=== PATIENT | male | born 1960 | race Caucasian/White ===

== ENCOUNTER 2019-04-25 14:05 | Inpatient (IN) | payer BC, OTHER ==
[~2019-04-25] VITALS: Ht 182.9 cm; Wt 119.7 kg
[2019-04-25] MEDS ORDERED: amLODIPine BESYLATE 5 MG TAB PO ONE (14:30)
[2019-04-25] MEDS ORDERED: cloNIDine HCL 0.1 MG TAB PO ONE (14:30)
[2019-04-25 14:46] LABS: Basophils # (auto) 0 uL; Basophils % (auto) 0.4 % (0.0-2.0); Eosinophils # (auto) 0.1 uL; Eosinophils % (auto) 0.6 % (0.0-7.0); Hematocrit 35.7 % (41.0-53.0); Hemoglobin 12.1 g/dL (13.5-17.5); Lymphocytes # (auto) 0.8 uL; Lymphocytes % (auto) 8.5 % (10.0-50.0); Mean Corpuscular Hgb Conc. 33.8 g/dL (32.0-36.0); Mean Corpuscular Volume 88.6 fL (80.0-100.0); Monocytes # (auto) 0.8 uL; Neutrophils # (auto) 7.3 uL; Neutrophils % (auto) 81.5 % (37.0-80.0); Platelet Count (auto) 186 10^3/uL (140-450); Red Blood Cells 4.03 10^6/uL (4.5-5.90); Red Cell Distribution Width 12.2 % (11.8-14.3)
[2019-04-25 15:09] LABS: Albumin 3.6 g/dL (3.4-5.0); Anion Gap 6 (5-15); Blood Urea Nitrogen 17 mg/dL (7-18); Calcium 8.7 mg/dL (8.5-10.1); Carbon Dioxide 25 mmol/L (21-32); Chloride 107 mmol/L (98-107); Glucose 133 mg/dL (74-106); Potassium 3.4 mmol/L (3.5-5.1); Sodium 138 mmol/L (136-145)
[2019-04-25 15:15] LABS: Alanine Aminotransferase 30 U/L (16-61); Alkaline Phosphatase 86 U/L (45-117); Aspartate Aminotransferase 12 U/L (15-37); Bilirubin, Total 1.3 mg/dL (0.2-1.0); GFR African American 60 mL/min; GFR Non-African American 49 mL/min; Total Protein 7.8 g/dL (6.4-8.2)
[2019-04-25] MEDS ORDERED: POTASSIUM EFFERVESENT TAB 25 MEQ PO ONE (16:30)
[2019-04-25] MEDS ORDERED: FUROSEMIDE 20 MG/2 ML VIAL IV ONE (16:30)
[2019-04-25] MEDS ORDERED: ACETAMINOPHEN 325 MG TAB PO PRN (20:45)
[2019-04-25] MEDS ORDERED: TEMAZEPAM 15 MG CAP PO PRN (20:45)
[2019-04-25] MEDS ORDERED: ONDANSETRON HCL 4 MG/2 ML VIAL IV PRN (20:45)
[2019-04-25] MEDS ORDERED: DEXTROSE (50%) 50ML SYRG IV PRN (20:45)
[2019-04-25] MEDS ORDERED: cloNIDine HCL 0.1 MG TAB PO PRN (20:45)
[2019-04-25] MEDS ORDERED: MORPHINE SULF INJ 2 MG/ML SYRINGE 1ML IV PRN (21:15)
[2019-04-25] MEDS ORDERED: NITROGLYCERIN 0.4 MG SL TAB SL PRN (21:15)
--- NOTE | 2019-04-25 22:00 | NUR ---
Telemetry admit from ER VELIA CATALAN admitted to Telemetry unit after SBAR received. Patient oriented to Hetal Michel RN primary RN, unit, room, bed, and unit policies regarding patient care and visiting hours. Patient now on continuous telemetry monitoring, tele box # 13 and telemetry reading on arrival to unit is SR. Patient placed on bedside oxygen at 2 Lpm/NC, weighed by bedscale and encouraged to call if they need something. All questions and concerns addressed, patient verbalized understanding. will continue to monitor Note: []
[2019-04-25] MEDS: FAMOTIDINE 20 MG TAB PO SCH (22:13)
[2019-04-26] VITALS (9 sets, daily range): BP systolic 133–160; BP diastolic 74–94
[2019-04-26] MEDS: ACCU-CHEK COMFORT CURVE STRIP VI SCH ×4 (00:07→16:59)
[2019-04-26] MEDS ORDERED: AML5T PO (01:39)
[2019-04-26] MEDS ORDERED: DOXA1TAB84 PO (01:39)
[2019-04-26] MEDS ORDERED: METF-370 PO (01:39)
[2019-04-26] MEDS ORDERED: INFLUENZA QUAD 2019-2020 0.5ml SYRG IM ONE (02:00)
[2019-04-26] MEDS: InsuLIN REG 1unit/0.01ml Soln (100units/ml) SC SCH ×4 (06:00→16:59)
[2019-04-26 06:55] LABS: Basophils # (auto) 0.1 uL; Eosinophils # (auto) 0.1 uL; Eosinophils % (auto) 1.4 % (0.0-7.0); Hematocrit 34.2 % (41.0-53.0); Hemoglobin 11.7 g/dL (13.5-17.5); Lymphocytes % (auto) 16.9 % (10.0-50.0); Mean Corpuscular Hemoglobin 30.1 pg (28.0-32.0); Mean Corpuscular Hgb Conc. 34.1 g/dL (32.0-36.0); Mean Corpuscular Volume 88.4 fL (80.0-100.0); Monocytes # (auto) 0.7 uL; Monocytes % (auto) 11.7 % (0.0-12.0); Platelet Count (auto) 175 10^3/uL (140-450); Red Blood Cells 3.87 10^6/uL (4.5-5.90); Red Cell Distribution Width 12.5 % (11.8-14.3); White Blood Cell 5.7 10^3/uL (4.4-10.8)
[2019-04-26 07:03] LABS: BUN/Creatinine Ratio 11.4; Calcium 8.7 mg/dL (8.5-10.1); Potassium 3.7 mmol/L (3.5-5.1)
[2019-04-26] MEDS: FAMOTIDINE 20 MG TAB PO SCH ×2 (09:30→21:42)
[2019-04-26] MEDS ORDERED: amLODIPine BESYLATE 5 MG TAB PO SCH (10:00)
[2019-04-26] MEDS ORDERED: FUROSEMIDE 40 MG TAB PO SCH (10:00)
[2019-04-26] MEDS ORDERED: METOPROLOL TARTRATE 25 MG TAB PO ONE (12:00)
[2019-04-26 12:21] LABS: Cholesterol 158 mg/dL (< 200)
[2019-04-26 12:24] LABS: HDL Cholesterol 40 mg/dL (40-59); LDL Cholesterol 89 mg/dL (< 100); Triglycerides 190 mg/dL (< 150)
--- NOTE | 2019-04-26 17:49 | NUR ---
ORDER FOR MAR CATHETER INSERTION, PT REFUSED. EDUCATED PT ON WHY THE DR ORDERED THE CATHETER. PT IS ALERT AND ORIENTED, VERBALIZED UNDERSTANDING, BUT REFUSED THE URINARY CATH.
[2019-04-26 17:52] LABS: Basophils # (auto) 0.1 uL; Eosinophils # (auto) 0.1 uL; Eosinophils % (auto) 2.3 % (0.0-7.0); Hematocrit 34.8 % (41.0-53.0); Hemoglobin 11.9 g/dL (13.5-17.5); Lymphocytes # (auto) 1.1 uL; Lymphocytes % (auto) 18.1 % (10.0-50.0); Mean Corpuscular Hemoglobin 30.1 pg (28.0-32.0); Mean Corpuscular Hgb Conc. 34.2 g/dL (32.0-36.0); Mean Corpuscular Volume 88.1 fL (80.0-100.0); Monocytes # (auto) 0.7 uL; Monocytes % (auto) 11.3 % (0.0-12.0); Neutrophils % (auto) 67.3 % (37.0-80.0); Platelet Count (auto) 187 10^3/uL (140-450); Red Blood Cells 3.95 10^6/uL (4.5-5.90); Red Cell Distribution Width 12.3 % (11.8-14.3)
--- NOTE | 2019-04-26 20:00 | NUR ---
Opening Shift Note Assumed care of patient, awake and alert. No S/S of distress/SOB or pain. Patient is on room air. Respirations even and unlabored. Instructed on POC and to call for assist PRN, will continue to monitor for changes Q1hr and PRN.
--- NOTE | 2019-04-26 20:05 | NUR ---
PATIENT CONTINUES TO REFUSE INSERTION OF MAR CATHETER PATIENT DENIES ANY PROBLEM WITH URINATION AND DENIES HAVING ANY PELVIC PAIN.
[2019-04-26 20:52] LABS: Urine Bacteria NONE SEEN /hpf (None Seen); Urine Blood 1+ /uL (Negative); Urine Mucus FEW (None Seen); Urine Specific Gravity 1.011 (1.001-1.035); Urine WBC 1 /hpf (0 - 3)
[2019-04-26 21:12] LABS: Protein, Urine 158.7 mg/dL (0.0-11.9)
[2019-04-26] MEDS ORDERED: DOXAZOSIN MESYL 2 MG TAB PO SCH (22:00)
[2019-04-26] MEDS ORDERED: METOPROLOL TARTRATE 25 MG TAB PO SCH (22:00)
[2019-04-26] MEDS ORDERED: ATORVASTATIN 20 MG TAB PO SCH (22:00)
--- NOTE | 2019-04-27 | NUR ---
PATIENT REFUSING INSULIN PATIENT EDUCATED ON IMPORTANCE OF BLOOD SUGAR BEING WITHIN NORMAL LIMITS. PATIENT VERBALIZED UNDERSTANDING. PATIENT CONTINUES TO REFUSE INSULIN. PATIENT STATES HIS WILL BRING HIS METFORMIN IN THE MORNING. PATIENT IS ASYMPTOMATIC.
[2019-04-27] MEDS: ACCU-CHEK COMFORT CURVE STRIP VI SCH ×4 (00:10→18:00)
[2019-04-27 05:19] VITALS: BP 145/78
[2019-04-27] MEDS: InsuLIN REG 1unit/0.01ml Soln (100units/ml) SC SCH ×4 (05:32→18:00)
--- NOTE | 2019-04-27 07:00 | NUR ---
CLOSING NOTE No S/S of distress/SOB or pain. Patient is on room air. Respirations even and unlabored.
[2019-04-27 08:57] LABS: Basophils # (auto) 0 uL; Basophils % (auto) 0.7 % (0.0-2.0); Eosinophils # (auto) 0.1 uL; Hematocrit 37.1 % (41.0-53.0); Hemoglobin 12.5 g/dL (13.5-17.5); Lymphocytes # (auto) 0.8 uL; Lymphocytes % (auto) 14.7 % (10.0-50.0); Mean Corpuscular Hemoglobin 29.9 pg (28.0-32.0); Mean Corpuscular Hgb Conc. 33.7 g/dL (32.0-36.0); Mean Corpuscular Volume 88.6 fL (80.0-100.0); Monocytes # (auto) 0.6 uL; Neutrophils # (auto) 4.2 uL; Neutrophils % (auto) 72.6 % (37.0-80.0); Nucleated Red Blood Cells % 0.1 %; Platelet Count (auto) 205 10^3/uL (140-450); Red Blood Cells 4.19 10^6/uL (4.5-5.90); Red Cell Distribution Width 12.2 % (11.8-14.3); White Blood Cell 5.8 10^3/uL (4.4-10.8)
[2019-04-27 09:00] VITALS: BP 144/77
[2019-04-27 09:09] LABS: BUN/Creatinine Ratio 14.5; Calcium 8.7 mg/dL (8.5-10.1); Magnesium 2.2 mg/dL (1.6-2.6); Potassium 3.4 mmol/L (3.5-5.1)
[2019-04-27] MEDS ORDERED: ERGOCALCIFEROL 50,000 UNIT(1.25MG) CAP PO SCH (09:30)
[2019-04-27] MEDS: FAMOTIDINE 20 MG TAB PO SCH (09:49)
[2019-04-27] MEDS ORDERED: amLODIPine BESYLATE 5 MG TAB PO SCH (10:00)
[2019-04-27] MEDS ORDERED: FUROSEMIDE 40 MG TAB PO SCH ×2 (10:00)
[2019-04-27] MEDS: METOPROLOL TARTRATE 50 MG TAB PO SCH (10:00)
[2019-04-27 12:33] VITALS: BP 147/87
[2019-04-27] MEDS ORDERED: POTA-180 PO (15:44)
[2019-04-27] MEDS ORDERED: MET50T PO (15:44)
[2019-04-27] MEDS ORDERED: ATOR20TA50 PO (15:44)
[2019-04-27] MEDS ORDERED: ERGO1CAP23 PO (15:44)
[2019-04-27] MEDS ORDERED: FURO40TA4 PO (15:44)
[2019-04-27] MEDS ORDERED: AML5T PO (15:44)
[2019-04-27] MEDS ORDERED: TAM04C PO (15:44)
[2019-04-27] MEDS ORDERED: POTASSIUM CHL 20 Meq TABLET PO ONE (15:45)
[2019-04-27 17:00] VITALS: BP 147/84
[2019-04-27 17:38] VITALS: BP 147/84
[2019-04-27] MEDS ORDERED: TAMSULOSIN HYDROCHLORIDE 0.4 MG CAP PO SCH (18:00)
--- NOTE | 2019-04-27 19:02 | NUR ---
DISCHARGE INSTRUCTIONS GIVEN TO PT. VERBALIZED UNDERSTANDING. ALL PAPERWORK SIGNED. IV REMOVED. TELE BOX #[id number] REMOVED AND TAKEN TO TELE MONITOR ROOM.
[2019-04-28] MEDS ORDERED: POTASSIUM CHL 20 Meq TABLET PO SCH (10:00)
== END 2019-04-27 19:00 | disposition home or self-care (01) | DRG 682 ==
LOC: ER 14:17 → TELE 14:18 → TELE-EAST 23:00
PROVIDERS: ADMIT Nurse Practitioner; ATTEND Internal Medicine
DX: N17.9 Acute kidney failure, unspecified (principal); I50.43 Acute on chronic combined systolic (congestive) and diastolic (congestive) heart failure; I16.9 Hypertensive crisis, unspecified; I43 Cardiomyopathy in diseases classified elsewhere; I31.3 Pericardial effusion (noninflammatory); N13.8 Other obstructive and reflux uropathy; I13.0 Hypertensive heart and chronic kidney disease with heart failure and stage 1 through stage 4 chronic kidney disease, or unspecified chronic kidney disease; E11.22 Type 2 diabetes mellitus with diabetic chronic kidney disease; E66.01 Morbid (severe) obesity due to excess calories; E87.6 Hypokalemia; E11.21 Type 2 diabetes mellitus with diabetic nephropathy; N18.9 Chronic kidney disease, unspecified; R33.8 Other retention of urine; Z68.35 Body mass index [BMI] 35.0-35.9, adult; E55.9 Vitamin D deficiency, unspecified; E78.5 Hyperlipidemia, unspecified; F41.9 Anxiety disorder, unspecified; I16.0 Hypertensive urgency; I27.20 Pulmonary hypertension, unspecified; N40.1 Benign prostatic hyperplasia with lower urinary tract symptoms; Z79.84 Long term (current) use of oral hypoglycemic drugs; Z82.49 Family history of ischemic heart disease and other diseases of the circulatory system; Z23 Encounter for immunization
CPT/HCPCS: 36415; 71046; 76775; 80048; 80053; 80061; 81001; 82306; 82533; 82570; 82962; 83036; 83735; 83880; 83970; 84100; 84154; 84156; 84300; 84443; 84484; 85025; 93005; 93306; 96374; G0378

== ENCOUNTER 2020-01-18 05:50 | Emergency (ER) | payer BC ==
[~2020-01-18] VITALS: Ht 182.9 cm; Wt 117.9 kg
[~2020-01-18 05:50] MED LIST: AML5T PO; ATOR20TA50 PO; ERGO1CAP23 PO; FURO40TA4 PO; MET50T PO; METF-370 PO; POTA-180 PO; TAM04C PO
[2020-01-18 07:19] LABS: Urine Amorphous Crystal MOD /hpf (None Seen); Urine Bacteria FEW /hpf (None Seen); Urine Blood 1+ /uL (Negative); Urine Mucus FEW (None Seen); Urine Specific Gravity 1.014 (1.001-1.035); Urine WBC 1 /hpf (0 - 3)
[2020-01-18] MEDS ORDERED: TAMSULOSIN HYDROCHLORIDE 0.4 MG CAP PO ONE (08:15)
[2020-01-18 09:00] VITALS: BP 146/82
== END 2020-01-18 09:18 | disposition home or self-care (01) ==
LOC: ER 05:51
DX: N40.1 Benign prostatic hyperplasia with lower urinary tract symptoms (principal); R33.8 Other retention of urine; I10 Essential (primary) hypertension; E11.65 Type 2 diabetes mellitus with hyperglycemia; I11.0 Hypertensive heart disease with heart failure; I50.9 Heart failure, unspecified; Z87.440 Personal history of urinary (tract) infections; Z79.899 Other long term (current) drug therapy
CPT/HCPCS: 51702; 81001; 82962

== ENCOUNTER 2020-05-24 07:11 | Day surgery (SDC) | payer BC, OTHER ==
[~2020-05-24] VITALS: Ht 182.9 cm; Wt 116.6 kg
[~2020-05-24 07:11] MED LIST changes: -ATOR20TA50 PO; +CHOL100029 PO; -ERGO1CAP23 PO; +FINA5TAB4 PO; +HYDR-4296 PO; +LISI-716 PO; -METF-370 PO; +METF-371 PO
[2020-05-24] MEDS ORDERED: ceFAZolin 1GM/50ML 50 ML IV ONE (09:16)
[2020-05-24] MEDS ORDERED: MEPERIDINE HCL (50 MG/ML) 1 ML VIAL ONE (09:53)
[2020-05-24] MEDS ORDERED: MIDAZOLAM HCL 2MG/2ML 2ml VIAL (1mg/ml) ONE (09:53)
[2020-05-24] MEDS ORDERED: fentaNYL CITRATE 100 MCG/2 ML VL ONE (09:53)
[2020-05-24] MEDS ORDERED: ETOMIDATE (2MG/ML) 20ML VIAL IV ONE (10:14)
[2020-05-24] MEDS ORDERED: DexAMETHasone SOD PHOS 10MG/1ML VIAL INJ ONE (10:14)
[2020-05-24] MEDS ORDERED: ONDANSETRON HCL 4 MG/2 ML VIAL IV PRN (10:15)
[2020-05-24] MEDS ORDERED: MORPHINE SULFATE 4 MG/ML SYR/VIAL IV PRN (10:15)
[2020-05-24] MEDS ORDERED: LABETALOL HCL 5 MG/ML 4ML SYRINGE IV PRN (10:15)
[2020-05-24] MEDS ORDERED: ACCU-CHEK COMFORT CURVE STRIP VI ONE (10:15)
[2020-05-24] MEDS ORDERED: HYDROmorphone HCL 2 MG/ML VL IV PRN (10:15)
[2020-05-24] MEDS ORDERED: MIDAZOLAM HCL 2MG/2ML 2ml VIAL (1mg/ml) IV PRN (10:15)
[2020-05-24] MEDS ORDERED: ePHEDrine SULFATE 50 MG/ML AMP IV PRN (10:15)
[2020-05-24 11:15] VITALS: BP 142/79
== END 2020-05-24 11:25 | disposition home or self-care (01) ==
LOC: SUR 07:11
PROVIDERS: ATTEND Urology
DX: N21.0 Calculus in bladder (principal); N40.0 Benign prostatic hyperplasia without lower urinary tract symptoms; I10 Essential (primary) hypertension; E11.9 Type 2 diabetes mellitus without complications; E66.01 Morbid (severe) obesity due to excess calories; E07.9 Disorder of thyroid, unspecified; Z68.34 Body mass index [BMI] 34.0-34.9, adult; Z20.822 Contact with and (suspected) exposure to COVID-19; Z98.890 Other specified postprocedural states; Z79.899 Other long term (current) drug therapy
CPT/HCPCS: 52318; 82962; C1769; J0690; J1100; J2175; J2250; J3010; J7030; U0003

== ENCOUNTER 2022-11-17 06:01 | Inpatient (IN) | payer BC ==
[~2022-11-17] VITALS: Ht 182.9 cm; Wt 117.9 kg
[~2022-11-17 06:01] MED LIST changes: -LISI-716 PO; +LISI10TA34 PO; -TAM04C PO; +TAMS-35 PO
[2022-11-17 07:14] LABS: Basophils # (auto) 0 10 ^3/uL (0-0.2); Basophils % (auto) 0.5 % (0.0-2.0); Eosinophils # (auto) 0.1 10 ^3/uL (0-0.8); Eosinophils % (auto) 1.4 % (0.0-7.0); Hematocrit 39.2 % (41.0-53.0); Hemoglobin 12.8 g/dL (13.5-17.5); Lymphocytes # (auto) 0.5 10 ^3/uL (0.4-5.4); Lymphocytes % (auto) 6.6 % (10.0-50.0); Mean Corpuscular Hemoglobin 30.4 pg (28.0-32.0); Mean Corpuscular Hgb Conc. 32.8 g/dL (32.0-36.0); Mean Corpuscular Volume 92.9 fL (80.0-100.0); Monocytes # (auto) 0.5 10 ^3/uL (0-1.3); Monocytes % (auto) 6.1 % (0.0-12.0); Neutrophils # (auto) 6.3 10 ^3/uL (1.6-8.6); Neutrophils % (auto) 85.4 % (37.0-80.0); Red Blood Cells 4.22 10^6/uL (4.5-5.90); White Blood Cell 7.4 10^3/uL (4.4-10.8)
[2022-11-17 07:18] LABS: Albumin 3.2 g/dL (3.4-5.0); BUN/Creatinine Ratio 12.9 (10.0-20.0); Calcium 8.2 mg/dL (8.5-10.1); Magnesium 2.3 mg/dL (1.6-2.6); Potassium 4.2 mmol/L (3.5-5.1)
[2022-11-17 07:21] LABS: Bilirubin, Total 0.6 mg/dL (0.2-1.0); Total Protein 6.5 g/dL (6.4-8.2)
[2022-11-17 07:23] LABS: Urine Bacteria FEW /hpf (None Seen); Urine Blood 1+ /uL (Negative); Urine Clarity Clear (Clear); Urine Hyaline Cast FEW /lpf (0 - 2); Urine Protein, UAD 3+ (Negative); Urine Urobilinogen Normal (Negative); Urine WBC 14 /hpf (0 - 3); Urine pH 6.5 (5.0-8.0)
[2022-11-17 07:35] LABS: Urine Color Straw (Yellow)
[2022-11-17] MEDS ORDERED: hydrALAZINE HCL 20 MG/ML VL IV ONE (12:30)
[2022-11-17 13:08] VITALS: PULSE 77; RESP 18; O2SAT 97
[2022-11-17] MEDS ORDERED: ENOXAPARIN SOD 120 MG/0.8 ML SYRINGE SC ONE (14:30)
[2022-11-17] MEDS ORDERED: FUROSEMIDE 40 MG/4 ML VIAL IV ONE (14:30)
[2022-11-17] MEDS ORDERED: ONDANSETRON HCL 4 MG/2 ML VIAL IV PRN (16:00)
[2022-11-17] MEDS ORDERED: NITROGLYCERIN 0.4 MG SL TAB SL PRN (16:00)
[2022-11-17] MEDS ORDERED: MORPHINE SULFATE INJ 2 MG/ml SYRG IV PRN ×2 (16:00)
[2022-11-17] MEDS ORDERED: ACETAMINOPHEN 325 MG TAB PO PRN (16:00)
[2022-11-17] MEDS ORDERED: HYDROcodone-ACET 5/325MG TAB PO PRN (16:00)
[2022-11-17 18:52] LABS: Creatinine, Urine 45 mg/dL (30.0-125.0); Sodium Urine 114 mmol/L (40-220)
[2022-11-17 19:02] LABS: Protein, Urine 486.9 mg/dL (0.0-11.9); Urine Protein/Creatinine Ratio 11.07
[2022-11-17 19:35] VITALS: PULSE 73; RESP 18; O2SAT 92
[2022-11-18 05:55] LABS: Basophils # (auto) 0.1 10 ^3/uL (0-0.2); Eosinophils # (auto) 0.1 10 ^3/uL (0-0.8); Eosinophils % (auto) 2.9 % (0.0-7.0); Hematocrit 38.4 % (41.0-53.0); Hemoglobin 12.4 g/dL (13.5-17.5); Lymphocytes # (auto) 0.7 10 ^3/uL (0.4-5.4); Mean Corpuscular Hemoglobin 30.1 pg (28.0-32.0); Mean Corpuscular Hgb Conc. 32.4 g/dL (32.0-36.0); Monocytes # (auto) 0.5 10 ^3/uL (0-1.3); Monocytes % (auto) 10.1 % (0.0-12.0); Neutrophils # (auto) 3.7 10 ^3/uL (1.6-8.6); Nucleated Red Blood Cells % 0.1 %; Red Blood Cells 4.13 10^6/uL (4.5-5.90); Red Cell Distribution Width 12.8 % (11.8-14.3); White Blood Cell 5.1 10^3/uL (4.4-10.8)
[2022-11-18 06:22] LABS: Potassium 3.9 mmol/L (3.5-5.1)
[2022-11-18 06:34] LABS: Albumin 2.8 g/dL (3.4-5.0); BUN/Creatinine Ratio 12.2 (10.0-20.0); Bilirubin, Total 0.4 mg/dL (0.2-1.0); Total Protein 6.5 g/dL (6.4-8.2)
[2022-11-18 09:13] VITALS: PULSE 82; RESP 18; O2SAT 94
[2022-11-18 09:14] VITALS: BP 180/110; PULSE 77; RESP 21; TEMP 97.8; O2SAT 94
[2022-11-18] MEDS: FUROSEMIDE 40 MG/4 ML VIAL IV SCH (10:14)
[2022-11-18] MEDS: ENOXAPARIN SOD 40 MG/0.4 ML SYRINGE SC SCH (10:14)
[2022-11-18 13:46] VITALS: BP 153/85; PULSE 78; RESP 18; TEMP 98.7; O2SAT 95
[2022-11-18] MEDS: amLODIPine BESYLATE 5 MG TAB PO SCH (13:51)
[2022-11-18 17:00] VITALS: BP 158/87; PULSE 70; RESP 19; TEMP 98; O2SAT 93
[2022-11-18 20:00] VITALS: PULSE 70
[2022-11-18 22:00] VITALS: BP 156/81; PULSE 72; RESP 21; TEMP 98.3; O2SAT 95
[2022-11-19 05:00] VITALS: BP 118/69; PULSE 72; RESP 22; TEMP 97.8; O2SAT 96
[2022-11-19 08:00] VITALS: PULSE 67; PULSE 74; RESP 18; O2SAT 95
[2022-11-19 09:00] VITALS: BP 155/86; PULSE 72; RESP 20; TEMP 97.8; O2SAT 96
[2022-11-19] MEDS: FUROSEMIDE 40 MG/4 ML VIAL IV SCH (09:26)
[2022-11-19] MEDS: ENOXAPARIN SOD 40 MG/0.4 ML SYRINGE SC SCH (09:27)
[2022-11-19] MEDS: amLODIPine BESYLATE 5 MG TAB PO SCH (09:27)
[2022-11-19] MEDS ORDERED: ERGOCALCIFEROL 50,000 UNIT(1.25MG) CAP PO SCH (10:30)
[2022-11-19 13:00] VITALS: BP 144/72; PULSE 75; RESP 20; TEMP 97.5; O2SAT 93
[2022-11-19] MEDS ORDERED: CEPH500C PO (13:23)
[2022-11-19 16:05] VITALS: BP 155/86; PULSE 78; RESP 18; TEMP 36.4; O2SAT 94
[2022-11-19 17:00] VITALS: BP 132/60; PULSE 69; RESP 20; TEMP 97.9; O2SAT 94
[2022-11-20 13:50] LABS: Hepatitis B Surface Antigen Negative (Negative); Hepatitis C Antibody Negative (Negative)
== END 2022-11-19 17:00 | disposition home or self-care (01) | DRG 291 ==
LOC: ER 06:01 → TELE 15:51 → TELE-CENTR 11-18 08:09
PROVIDERS: ADMIT Internal Medicine; ATTEND Internal Medicine
DX: I13.0 Hypertensive heart and chronic kidney disease with heart failure and stage 1 through stage 4 chronic kidney disease, or unspecified chronic kidney disease (principal); I50.43 Acute on chronic combined systolic (congestive) and diastolic (congestive) heart failure; N17.0 Acute kidney failure with tubular necrosis; N39.0 Urinary tract infection, site not specified; N18.4 Chronic kidney disease, stage 4 (severe); N25.81 Secondary hyperparathyroidism of renal origin; E66.01 Morbid (severe) obesity due to excess calories; E11.22 Type 2 diabetes mellitus with diabetic chronic kidney disease; N32.9 Bladder disorder, unspecified; N40.0 Benign prostatic hyperplasia without lower urinary tract symptoms; E55.9 Vitamin D deficiency, unspecified; Z68.35 Body mass index [BMI] 35.0-35.9, adult; Z79.84 Long term (current) use of oral hypoglycemic drugs; Z79.899 Other long term (current) drug therapy; Z82.49 Family history of ischemic heart disease and other diseases of the circulatory system
CPT/HCPCS: 36415; 71045; 74176; 76775; 78582; 80053; 81001; 82306; 82570; 83036; 83735; 83880; 83970; 84100; 84156; 84300; 84484; 85025; 85379; 86803; 87340; 93005; 93306; 93970; 97110; 97116; 97163; G0378

== ENCOUNTER 2022-12-02 09:12 | Emergency (ER) | payer BC ==
[~2022-12-02] VITALS: Ht 182.9 cm; Wt 115.3 kg
[~2022-12-02 09:12] MED LIST changes: +CEPH500C PO
[2022-12-02] MEDS ORDERED: cloNIDine HCL 0.1 MG TAB PO ONE (09:45)
[2022-12-02 10:15] LABS: Basophils # (auto) 0.1 10 ^3/uL (0-0.2); Eosinophils # (auto) 0.1 10 ^3/uL (0-0.8); Eosinophils % (auto) 0.9 % (0.0-7.0); Hematocrit 45.4 % (41.0-53.0); Lymphocytes # (auto) 0.6 10 ^3/uL (0.4-5.4); Lymphocytes % (auto) 9.8 % (10.0-50.0); Mean Corpuscular Hemoglobin 30.2 pg (28.0-32.0); Mean Corpuscular Volume 91.5 fL (80.0-100.0); Monocytes # (auto) 0.5 10 ^3/uL (0-1.3); Monocytes % (auto) 7.6 % (0.0-12.0); Neutrophils # (auto) 5.1 10 ^3/uL (1.6-8.6); Neutrophils % (auto) 80.7 % (37.0-80.0); Nucleated Red Blood Cells % 0.1 %; Red Blood Cells 4.96 10^6/uL (4.5-5.90); White Blood Cell 6.3 10^3/uL (4.4-10.8)
[2022-12-02 11:10] LABS: Alanine Aminotransferase 11 U/L (7-40); Albumin 4.3 g/dL (3.2-4.8); Alkaline Phosphatase 75 U/L (46-116); Anion Gap 9.7 (5-15); Aspartate Aminotransferase < 8 U/L (13-40); BUN/Creatinine Ratio 10.3 (10.0-20.0); Blood Urea Nitrogen 31 mg/dL (9-23); Calcium 9.1 mg/dL (8.5-10.1); Carbon Dioxide 19.3 mmol/L (20-30); Chloride 110 mmol/L (98-107); Glucose 150 mg/dL (74-106); Potassium 4.3 mmol/L (3.5-5.1); Sodium 139 mmol/L (136-145); Total Protein 7.1 g/dL (5.7-8.2)
[2022-12-02 11:13] LABS: Bilirubin, Total 0.5 mg/dL (0.2-1.0)
[2022-12-02] MEDS ORDERED: MECL1TAB42 PO (12:30)
[2022-12-02 12:43] VITALS: BP 155/81; PULSE 78; RESP 17; O2SAT 98
[2022-12-02 13:09] LABS: Urine Bacteria NONE SEEN /hpf (None Seen); Urine Blood 2+ /uL (Negative); Urine Clarity HAZY (Clear); Urine Color Yellow (Yellow); Urine Mucus FEW (None Seen); Urine Protein, UAD 4+ (Negative); Urine Specific Gravity 1.025 (1.001-1.035); Urine Urobilinogen Normal (Negative); Urine WBC 44 /hpf (0 - 3); Urine pH 6.5 (5.0-8.0)
== END 2022-12-02 12:50 | disposition home or self-care (01) ==
LOC: ER 09:12
DX: I10 Essential (primary) hypertension (principal); R42 Dizziness and giddiness; I11.0 Hypertensive heart disease with heart failure; I50.9 Heart failure, unspecified; E11.9 Type 2 diabetes mellitus without complications; E78.5 Hyperlipidemia, unspecified; Z90.49 Acquired absence of other specified parts of digestive tract
CPT/HCPCS: 36415; 70450; 71045; 80053; 81001; 82962; 84484; 85025; 93005

== ENCOUNTER 2024-10-24 07:31 | Inpatient (IN) | payer BC ==
[~2024-10-24] VITALS: Ht 182.9 cm; Wt 123.0 kg
[2024-10-24] VITALS (9 sets, daily range): BP systolic 134–159; BP diastolic 50–95; PULSE 89–105; RESP 20–22; TEMP 97.6–98.6; O2SAT 93–100
[~2024-10-24 07:31] MED LIST changes: -HYDR-4296 PO; +HYDR25TA88 PO; +MECL1TAB42 PO
--- NOTE | 2024-10-24 08:40 | ED.PDOC ---
SOB-HPI HPI Comments 63 y/o M, with PMHx of HTN, DM, and HLD presents to the ED for CC of shortness of breath. Patient states, he has been experiencing symptoms of shortness of breath x1day. Patient reports, symptoms to worsen with exertion feeling as if he is unable to catch his breath. Patient denies cough, chest pain, palpitations, fever, chills, or fatigue. No other associated symptoms, modifiers, recent injuries or sick contacts present at this time. Chief Complaint: Shortness of Breath Time Seen by MD: 08:10 Primary Care Provider: karen Reviewed notes: Nurses Notes, Medications, Allergies Mode of Arrival: Ambulatory Severity: Moderate Timing: Days Duration: Since onset Context: At Rest PE Risk Factors: None History of: None Prehospital treatment: None Modifying Factors: Exertion; Laying flat, Anxiety, Inhaler, Rest, Sitting up, Nothing Associated Signs and Symptoms: None Past Medical History PAST MEDICAL HISTORY: CHF, DM, High Lipids, HTN, UTI'S Surgical History: Appendectomy Family History Family History: Reviewed,noncontributory to illness Social History Smoker: Non-Smoker Alcohol: Denies ETOH Use Drugs: Denies Drug Use Lives In: Home Constitutional: denies: chills, diaphoresis, fatigue, fever, malaise, sweats, weakness, others EENTM: denies: blurred vision, double vision, ear bleeding, ear discharge, ear drainage, ear pain, ear ringing, eye pain, eye redness, hearing loss, mouth pain, mouth swelling, nasal discharge, nose bleeding, nose congestion, nose pain, photophobia, tearing, throat pain, throat swelling, voice changes, others Respiratory: reports: shortness of breath; denies: cough, hemoptysis, orthopnea, SOB at rest, SOB with excertion, stridor, wheezing, others Cardiovascular: denies: chest pain, dizzy spells, diaphoresis, Dyspnea on exertion, edema, irregular heart beat, left arm pain, lightheadedness, palpitations, PND, syncope, others Gastrointestinal: denies: abdomen distended, abdominal pain, blood streaked bowels, constipated, diarrhea, dysphagia, difficulty swallowing, hematemesis, melena, nausea, poor appetite, poor fluid intake, rectal bleeding, rectal pain, vomiting, others Genitourinary: denies: burning, dysuria, flank pain, frequency, hematuria, incontinence, penile discharge, penile sore, pain, testicle pain, testicle swelling, urgency, others Neurological: denies: dizziness, fainting, headache, left sided numbness, left sided weakness, numbness, paresthesia, pre-existing deficit, right sided numbness, right sided weakness, seizure, speech problems, tingling, tremors, weakness, others Musculoskeletal: denies: back pain, gout, joint pain, joint swelling, muscle pain, muscle stiffness, neck pain, others Integumetry: denies: bruises, change in color, change in hair/nails, dryness, laceration, lesions, lumps, rash, wounds, others Allergic/Immunocompromised: denies: Difficulty Healing, Frequent Infections, Hives, Itching, others Hematologic/Lymphatic: denies: anemia, blood clots, easy bleeding, easy bruising, swollen glands, others Endocrine: denies: excessive hunger, excessive sweating, excessive thirst, excessive urination, flushing, intolerance to cold, intolerance to heat, unexplained weight gain, unexplained weight loss, others Psychiatric: denies: anxiety, bipolar disorder, depression, hopeless, panic disorder, schizophrenia, sleepless, suicidal, others All Other Systems: Reviewed and Negative Physical Exam General Appearance: Moderate Distress HEENT: Normal ENT Inspection, Pharynx Normal, TMs Normal Neck: Full Range of Motion, Non-Tender, Normal, Normal Inspection Respiratory: Accessory Muscle Use, Respiratory Distress, Other (Coarse breath sounds) Cardiovascular: No Edema, No JVD, No Murmur, No Gallop, Normal Peripheral Pulses, Regular Rate/Rhythm Breast Exam: Deferred Gastrointestinal: Distended Genitalia: Deferred Pelvic: Deferred Rectal: Deferred Extremities: No calf tenderness, Normal capillary refill, Normal inspection, Normal range of motion, Non-tender, No pedal edema Musculoskeletal : Apperance: Normal Neurologic: Alert, aircraft captain II-XII nml as Tested, No Motor Deficits, Normal Affect, Normal Mood, No Sensory Deficits Cerebellar Function: Normal Reflexes: Normal Skin: Dry, Normal Color, Warm Peripheral Pulses: 3+ Radial (R), 3+ Radial (L) Lymphatic: No Adenopathy EKG EKG : Pulse Rate (adult): 93 Cardiac Rhythm: NSR Was a procedure done? Was a procedure done?: No Differential Dx Differential Diagnosis: Anxiety, Asthma, Bronchitis, CHF, COPD, Pneumonia, Pulmonary Embolism, Sinusitis, Pharyngitis, URI X-Ray, Labs, Meds, VS Vital Signs Date Time Temp Pulse Resp B/P (MAP) Pulse Ox O2 Delivery O2 Flow Rate FiO2 10/24/24 10:20 Nasal Cannula* 4 36 10/24/24 10:18 97.8 97 24 172/87 (115) 97 97.8 10/24/24 10:11 172/87 10/24/24 09:06 18 92 Nasal Cannula* 3 32 10/24/24 08:05 97.9 98 22 151/79 (103) 96 97.9 Lab Test 10/24/24 10:00 10/24/24 08:31 10/24/24 08:01 Range/Units Lactic Acid Level 2.9 *H 0.4-2.0 mmol/L White Blood Count 14.7 H 4.4-10.8 10^3/uL Red Blood Count 2.98 L 4.5-5.90 10^6/uL Hemoglobin 9.1 L 13.5-17.5 g/dL Hematocrit 28.0 L 41.0-53.0 % Mean Corpuscular Volume 94.0 80.0-100.0 fL Mean Corpuscular Hemoglobin 30.5 28.0-32.0 pg Mean Corpuscular Hemoglobin Concent 32.4 32.0-36.0 g/dL Red Cell Distribution Width 13.8 11.8-14.3 % Platelet Count 261 140-450 10^3/uL Mean Platelet Volume 9.4 6.9-10.8 fL Neutrophils (%) (Auto) 37.0-80.0 % Lymphocytes (%) (Auto) 10.0-50.0 % Monocytes (%) (Auto) 0.0-12.0 % Basophils (%) (Auto) 0.0-2.0 % Neutrophils # (Auto) 1.6-8.6 10 ^3/uL Lymphocytes # (Auto) 0.4-5.4 10 ^3/uL Monocytes # (Auto) 0-1.3 10 ^3/uL Differential Total Cells Counted 100.0 100 Neutrophils % (Manual) 92 H 37.0-80.0 Band Neutrophils % (Manual) 0 Lymphocytes % (Manual) 6 L 10.0-50.0 Monocytes % (Manual) 2 0-12 Eosinophils % (Manual) 0 0-7 Basophils % (Manual) 0 0.0-2.0 Metamyelocytes % (manual) 0 Myelocytes % (Manual) 0 Promyelocytes % (Manual) 0 Blast Cells % (Manual) 0 Reactive Lymphocytes 0 Platelet Estimate Adequate Clumped Platelets None D-Dimer, Quantitative 0.60 H 0.0-0.49 mg/L FEU Sodium Level 139 136-145 mmol/L Potassium Level 4.2 3.5-5.1 mmol/L Chloride Level 106 98-107 mmol/L Carbon Dioxide Level 21 20-31 mmol/L Anion Gap 12 5-15 Blood Urea Nitrogen 38 H 9-23 mg/dL Creatinine 3.73 H 0.700-1.30 mg/dL Glomerular Filtration Rate Calc 17 >90 mL/min BUN/Creatinine Ratio 10.2 10.0-20.0 Serum Glucose 254 H 74-106 mg/dL Calcium Level 9.1 8.7-10.4 mg/dL Troponin I High Sensitivity 248 *H </=54 ng/L POC Glucose 250 H 70-106 mg/dl Current Medications Medications (Trade) Dose Ordered Sig/Bossman Route Start Time Stop Time Status Last Admin Methylprednisolone Sodium Succinate (Solu Medrol) 125 mg ONCE ONCE IV 10/24/24 08:45 10/24/24 08:46 DC 10/24/24 10:10 Albuterol (Ventolin Medneb) 5 mg ONCE ONCE NEB 10/24/24 08:45 10/24/24 08:46 DC 10/24/24 09:06 Ipratropium [place] (Atrovent Medneb) 0.5 mg ONCE ONCE NEB 10/24/24 08:45 10/24/24 08:46 DC 10/24/24 09:06 Levofloxacin/ Dextrose 100 ml @ 100 mls/hr ONCE ONCE IV 10/24/24 09:45 10/24/24 10:44 DC 10/24/24 10:10 Vancomycin HCl 200 ml @ 200 mls/hr ONCE ONCE IV 10/24/24 09:45 10/24/24 10:44 DC 10/24/24 10:10 Furosemide (Lasix Injection) 40 mg ONCE ONCE IV 10/24/24 09:45 10/24/24 09:46 DC 10/24/24 10:11 Enoxaparin Sodium (Lovenox) 120 mg ONCE ONCE SC 10/24/24 10:30 10/24/24 10:31 DC 10/24/24 10:[address] [address] Ph: [phone] DIAGNOSTIC IMAGING Diagnostic Imaging Report : [id number] Signed PATIENT: VELIA CATALAN ACCT: [id number] UNIT: [id number] : 1960 LOC: ER ROOM / BED: / AGE / SEX: 63 / M ADM STATUS: REG ER SERVICE 1 ORDERING PHYSICIAN: OSWALD PAUL MD PROCEDURE(s): CXRP - CHEST PORTABLE REASON: sob ORDER NUMBER(s): [id number], ACCESSION NUMBER(s): [id number] CHEST RADIOGRAPH Indication: sob Technique: Single frontal view of the chest was obtained COMPARISON: XY CHEST PORTABLE on DOS: 12/02/22, XY CHEST PORTABLE on DOS: 11/17/22 FINDINGS: Lines and Tubes: None Lungs: Congestion Pleura: No effusion. No pneumothorax. Cardiomediastinal contours: Unremarkable Bones: Unremarkable IMPRESSION: Mild pulmonary vascular congestion. ATED BY: HORACE CANALES MD DICTATED DATE/TIME: 10/24/24850 SIGNED BY: HORACE CANALES MD SIGNED DATE/TIME: 10/24/24850 CC: Patient alert. Complaining of shortness a breath. Placed on oxygen. Answering questions. No leg swelling. Chest x-ray does show CHF. Was given Lasix pain Was given breathing treatment. WBC elevated. Possible pneumonitis. Was given Levaquin. Was given vancomycin. Patient could not be given fluids as per sepsis protocol because of CHF. Explained to the patient. Continue to monitor. EKG reviewed does not show any acute process. Time of 1ST Reevaluation: 08:40 Reevaluation 1ST: Unchanged Patient Education/Counseling: Diagnosis, Treatment Family Education/Counseling: No Family Present SEPSIS Sepsis Screen Date sepsis recognized/suspect: Oct 24, 2024 Time Sepsis recognized/suspect: 0759 Recent Procedure: No On Antibiotic Therapy: No Respiratory Rate >20: No Heart Rate >90: Yes Temp<36 C (96.8 F) or >38.3 C: No SBP <90 or MAP <65 mmHG: No New Acute Mental Status Change: No Is the patient on CPAP, BIPAP,: No Physician Orders Chest Portable (10/24/24 08:12) Blood Culture (10/24/24 09:35) Nm Vq Scan (10/24/24 10:27) Sodium Chloride 0.9% (10/24/24 11:00) Vital Signs Date Time Temp Pulse Resp B/P (MAP) Pulse Ox O2 Delivery O2 Flow Rate FiO2 10/24/24 10:20 Nasal Cannula* 4 36 10/24/24 10:18 97.8 97 24 172/87 (115) 97 97.8 10/24/24 10:11 172/87 10/24/24 09:06 18 92 Nasal Cannula* 3 32 10/24/24 08:05 97.9 98 22 151/79 (103) 96 97.9 Laboratory Tests Test 10/24/24 08:31 10/24/24 10:00 White Blood Count 14.7 10^3/uL (4.4-10.8) H Lactic Acid Level 2.9 mmol/L (0.4-2.0) *H Medications Medications Dose Ordered Sig/Bossman Route Start Time Stop Time Status Last Admin Dose Admin Albuterol 5 mg ONCE ONCE NEB 10/24/24 08:45 10/24/24 08:46 DC 10/24/24 09:06 Enoxaparin Sodium 120 mg ONCE ONCE SC 10/24/24 10:30 10/24/24 10:31 DC 10/24/24 10:32 Furosemide 40 mg ONCE ONCE IV 10/24/24 09:45 10/24/24 09:46 DC 10/24/24 10:11 Ipratropium [place] 0.5 mg ONCE ONCE NEB 10/24/24 08:45 10/24/24 08:46 DC 10/24/24 09:06 Levofloxacin/ Dextrose 100 ml @ 100 mls/hr ONCE ONCE IV 10/24/24 09:45 10/24/24 10:44 DC 10/24/24 10:10 Methylprednisolone Sodium Succinate 125 mg ONCE ONCE IV 10/24/24 08:45 10/24/24 08:46 DC 10/24/24 10:10 Vancomycin HCl 200 ml @ 200 mls/hr ONCE ONCE IV 10/24/24 09:45 10/24/24 10:44 DC 10/24/24 10:10 Departure 1 Departure Time of Disposition: 09:33 Impression: Primary Impression: CHF (congestive heart failure) Qualified Codes: I50.43 - Acute on chronic combined systolic (congestive) and diastolic (congestive) heart failure Additional Impressions: Pneumonitis NSTEMI (non-ST elevated myocardial infarction) Disposition: ADMITTED INPATIENT Admit to: Med Surg Condition: Guarded Critical Care Note Critical Care Time?: Yes (90 min-critical care time only) Critical care comment: Continue monitoring Stability Stability form required: No Heart Score Heart Score: Heart Score Response (Comments) Value History Slightly Suspicious 0 EKG Normal 0 Age 45-64 1 Risk Factors >3 or Hx ASHD 2 Troponin >3 x's Normal limit 2 Total 5 I personally scribed for OSWALD PAUL MD ([email or web address]) on 10/24/24 at 08:40. Electronically submitted by Nita Galo ([email or web address]). I personally scribed for OSWALD PAUL MD ([email or web address]) on 10/24/24 at 09:21. Electronically submitted by Nita Galo [email or web address]). OSWALD PAUL MD Oct 24, 2024 08:40
--- NOTE | 2024-10-24 08:53 | DVH ---
CHEST RADIOGRAPH Indication: sob Technique: Single frontal view of the chest was obtained COMPARISON: XY CHEST PORTABLE on DOS: 12/02/22, XY CHEST PORTABLE on DOS: 11/17/22 FINDINGS: Lines and Tubes: None Lungs: Congestion Pleura: No effusion. No pneumothorax. Cardiomediastinal contours: Unremarkable Bones: Unremarkable IMPRESSION: Mild pulmonary vascular congestion.
[2024-10-24] MEDS: ALBUTEROL SULF 2.5 MG/0.5ML(0.5%) NEB SOLN NEB ONE (09:06)
[2024-10-24] MEDS: IPRATROPIUM BROM 0.5 MG/2.5ML INH SOL NEB ONE (09:06)
[2024-10-24 09:09] LABS: Chloride 106 mmol/L (98-107); Potassium 4.2 mmol/L (3.5-5.1); Sodium 139 mmol/L (136-145)
[2024-10-24 09:10] LABS: Anion Gap 12 (5-15); Carbon Dioxide 21 mmol/L (20-31); Hematocrit 28.0 % (41.0-53.0); Hemoglobin 9.1 g/dL (13.5-17.5); Mean Corpuscular Hemoglobin 30.5 pg (28.0-32.0); Mean Corpuscular Volume 94.0 fL (80.0-100.0)
[2024-10-24 09:11] LABS: Calcium 9.1 mg/dL (8.7-10.4)
[2024-10-24 09:15] LABS: BUN/Creatinine Ratio 10.2 (10.0-20.0)
[2024-10-24 09:34] LABS: Blood Urea Nitrogen 38 mg/dL (9-23); Glucose 254 mg/dL (74-106)
[2024-10-24] MEDS: methylPREDNISolone SOD SUCC 125 MG/2 ML VL IV ONE (10:10)
[2024-10-24] MEDS: VANCOMYCIN 1GM/200ML PM 200 ML IV ONE (10:10)
[2024-10-24] MEDS: FUROSEMIDE 40 MG/4 ML VIAL IV ONE (10:11)
[2024-10-24] MEDS: ENOXAPARIN SOD 120 MG/0.8 ML SYRINGE SC ONE (10:32)
[2024-10-24 10:43] LABS: Lactic Acid w/Reflex 2.9 mmol/L (0.4-2.0)
[2024-10-24] MEDS: SODIUM CHLORIDE 0.9% 2,000 ML IV ONE (10:51)
--- NOTE | 2024-10-24 11:04 | DVHINCON2 ---
Date of service: Oct 24, 2024 History of Present Illness 63 yo M with mild CHF ef 45%, morbid obesity, htn, copd admitted for sob and ANDRZEJ. creat is quite high and he has hx of stage IV Ckd. he has no hx of pci . his d dimer and trop are elevated. Past Medical History reviewed Family History: Cardiovascular disease G8 MOTHER, G8 FATHER, Allergies: Coded Allergies: NO KNOWN ALLERGIES (Unverified , 05/22/20) Home Meds Active Scripts Meclizine HCl (Meclizine 25) 25 Mg Tab, 25 MG PO DAILY for 5 Days, #5 TAB Prov:OSWALD PAUL MD 12/02/22 Cephalexin Monohydrate (Cephalexin) 500 Mg Cap, 1 CAP PO TID, #15 CAP Prov:TRIPP MARINA MD 11/19/22 Potassium Chloride (Potassium Chloride ER) 20 Meq Tab, 20 MEQ PO DAILY, #30 MG Prov:VIRGINIA FANG MD 04/27/19 Tamsulosin Hcl (Flomax) 0.4 Mg Cap, 0.4 MG PO QPM, #30 CAP Prov:VIRGINIA FANG MD 04/27/19 Metoprolol Tartrate (LOPRESSOR TABLET) 50 Mg Tb, 50 MG PO BID, #60 TAB Prov:VIRGINIA FANG MD 04/27/19 Furosemide (Furosemide) 40 Mg Tab, 40 MG PO DAILY, #30 TAB Prov:VIRGINIA FANG MD 04/27/19 Amlodipine Besylate (NORVASC TABLET) 5 Mg Tb, 10 MG PO DAILY, #30 TAB Prov:VIRGINIA FANG MD 04/27/19 Reported Medications Finasteride (Finasteride) 5 Mg Tab, 5 MG PO DAILY for 30 Days, MG 05/22/20 Metformin Hydrochloride (Metformin Hcl) 850 Mg Tab, 850 MG PO DAILY for 30 Days, MG 05/22/20 Cholecalciferol (Vitamin D) 1,000 Unit Tab, 1000 UNIT PO DAILY, TAB 05/22/20 Hydralazine Hcl (Hydralazine Hcl) 25 Mg Tab, 25 MG PO DAILY for 30 Days, MG 05/22/20 Lisinopril (Lisinopril) 10 Mg Tab, 10 MG PO DAILY for 30 Days, MG 05/22/20 Review of Systems 10 pt ros otherwise negative Vital Signs Vital Signs Date Time Temp Pulse Resp B/P (MAP) Pulse Ox O2 Delivery O2 Flow Rate FiO2 10/24/24 10:20 Nasal Cannula* 4 36 10/24/24 10:18 97.8 97 24 172/87 (115) 97 97.8 Physical Exam nad s1 s2 rrr ctab soft obese, NT no edema Labs/Diagnostic Data Labs Test 10/24/24 10:00 10/24/24 08:31 10/24/24 08:01 Range/Units Lactic Acid Level 2.9 *H 0.4-2.0 mmol/L White Blood Count 14.7 H 4.4-10.8 10^3/uL Red Blood Count 2.98 L 4.5-5.90 10^6/uL Hemoglobin 9.1 L 13.5-17.5 g/dL Hematocrit 28.0 L 41.0-53.0 % Mean Corpuscular Volume 94.0 80.0-100.0 fL Mean Corpuscular Hemoglobin 30.5 28.0-32.0 pg Mean Corpuscular Hemoglobin Concent 32.4 32.0-36.0 g/dL Red Cell Distribution Width 13.8 11.8-14.3 % Platelet Count 261 140-450 10^3/uL Mean Platelet Volume 9.4 6.9-10.8 fL Neutrophils (%) (Auto) 37.0-80.0 % Lymphocytes (%) (Auto) 10.0-50.0 % Monocytes (%) (Auto) 0.0-12.0 % Basophils (%) (Auto) 0.0-2.0 % Neutrophils # (Auto) 1.6-8.6 10 ^3/uL Lymphocytes # (Auto) 0.4-5.4 10 ^3/uL Monocytes # (Auto) 0-1.3 10 ^3/uL D-Dimer, Quantitative 0.60 H 0.0-0.49 mg/L FEU Sodium Level 139 136-145 mmol/L Potassium Level 4.2 3.5-5.1 mmol/L Chloride Level 106 98-107 mmol/L Carbon Dioxide Level 21 20-31 mmol/L Anion Gap 12 5-15 Blood Urea Nitrogen 38 H 9-23 mg/dL Creatinine 3.73 H 0.700-1.30 mg/dL Glomerular Filtration Rate Calc 17 >90 mL/min BUN/Creatinine Ratio 10.2 10.0-20.0 Serum Glucose 254 H 74-106 mg/dL Calcium Level 9.1 8.7-10.4 mg/dL Troponin I High Sensitivity 248 *H </=54 ng/L POC Glucose 250 H 70-106 mg/dl Assessment ANDRZEJ on ckd copd exacerbation mild systolic HF, nyha class III hf obesity HTN HL nstemi Plan/Recommendation lovenox dose given vq scan per ER ordered, vte workup ongoing check echo not a candidate for cta or invasive eval at this time trend trops lasix x1 given by ER check bnp Plan discussed with: Patient MICHAEL FORDE MD Oct 24, 2024 11:04
[2024-10-24 11:10] LABS: Total Cells Counted 100.0 (100)
[2024-10-24] MEDS: SODIUM CHLORIDE 0.9% 1,000 ML IV ONE ×4 (11:59→14:34)
[2024-10-24] MEDS ORDERED: MORPHINE SULFATE INJ 2 MG/ml SYRG IV PRN ×2 (14:00→14:15)
[2024-10-24] MEDS ORDERED: DEXTROSE (50%) 50ML SYRG IV PRN (14:00)
[2024-10-24] MEDS ORDERED: ONDANSETRON HCL 4 MG/2 ML VIAL IV PRN (14:00)
[2024-10-24] MEDS ORDERED: NITROGLYCERIN 0.4 MG SL TAB SL PRN (14:00)
--- NOTE | 2024-10-24 14:06 | DVH ---
Bilateral lower extremity venous duplex Clinical History: sob/leg discomfort Comparison: US BILAT LOWER DVT on DOS: 11/17/22 Technique: Duplex Doppler evaluation of the deep venous systems of both lower extremities from the common femora l veins to the popliteal veins including color Doppler and spectral/pulsed waveform analysis was perf ormed. Findings: RIGHT SIDE: The common femoral vein demonstrates appropriate compressibility and waveform variability. There is compressibility/patency of the great saphenous vein at the proximal thigh. The femoral vein demonstrates appropriate compressibility and waveform variability. The deep femoral vein demonstrates appropriate compressibility and waveform variability. The popliteal vein demonstrates appropriate compressibility and waveform variability. There is normal compressibility at the tibioperoneal trunk. LEFT SIDE: The common femoral vein demonstrates appropriate compressibility and waveform variability. There is compressibility/patency of the great saphenous vein at the proximal thigh. The femoral vein demonstrates appropriate compressibility and waveform variability. The deep femoral vein demonstrates appropriate compressibility and waveform variability. The popliteal vein demonstrates appropriate compressibility and waveform variability. There is normal compressibility at the tibioperoneal trunk. Impression: 1. No right or left femoropopliteal venous thrombosis.
--- NOTE | 2024-10-24 14:13 | DVHHP2 ---
History of Present Illness Reason for Visit: Shortness of breath History of Present Illness 63 y/o M, with PMHx of HTN, DM, and HLD presents to the ED for CC of shortness of breath. Patient states, he has been experiencing symptoms of shortness of breath x1day. Patient reports, symptoms to worsen with exertion feeling as if he is unable to catch his breath. Patient denies cough, chest pain, palpitations, fever, chills, or fatigue. No other associated symptoms, modifiers, recent injuries or sick contacts present at this time. Denies any fevers chills or sweats. No recent travel. Denies any smoking. Other review of systems reviewed normal. Past Medical History CHF, DM, High Lipids, HTN, UTI'S Past Surgical History: Appendectomy Family History: Hypertension Smoke: No ALCOHOL: rare Lives: with Family Review of Systems Review of Systems No complaints of fevers chills or sweats. No chest pain. No recent travel. No cough or productive sputum. Other review of systems reviewed normal. Allergies: Coded Allergies: NO KNOWN ALLERGIES (Unverified , 05/22/20) Medications Current Medications Medications Dose Ordered Sig/Bossman Route Start Time Stop Time Status Last Admin Dose Admin Nitroglycerin 0.4 mg Q5MINP PRN SL 10/24/24 14:00 UNV Morphine Sulfate 2 mg Q30M PRN IV 10/24/24 14:00 UNV Diagnostic Test (Pha) 1 strip ACHS 10/24/24 17:00 UNV Insulin Human Regular HS SC 10/24/24 22:00 UNV Insulin Human Regular AC SC 10/24/24 17:00 UNV Dextrose 50 ml UD PRN IV 10/24/24 14:00 UNV Ceftriaxone Sodium 50 ml @ 100 mls/hr DAILY@09 IV 10/25/24 09:00 UNV Azithromycin 250 ml @ 125 mls/hr DAILY IV 10/25/24 10:00 UNV Famotidine 20 mg Q12HR PO 10/24/24 22:00 UNV Ondansetron HCl 4 mg Q4HPRN PRN IV 10/24/24 14:00 UNV Enoxaparin Sodium 100 mg Q12HR SC 10/24/24 22:00 UNV Hydralazine HCl 10 mg Q6HP PRN IV 10/24/24 14:00 UNV Carvedilol 6.25 mg Q12HR PO 10/24/24 22:00 UNV Exam Vital Signs Vital Signs Date Time Temp Pulse Resp B/P (MAP) Pulse Ox O2 Delivery O2 Flow Rate FiO2 10/24/24 12:33 89 145/50 (81) 10/24/24 10:20 Nasal Cannula* 4 36 10/24/24 10:18 97.8 24 97 97.8 Exam Obese gentleman comfortable lying in bed. Alert awake oriented x3. Able to give a reliable history. HEENT neck supple no JVD. Pupils equal round react to light. Heart regular rate and rhythm S1 and S2 without murmurs. Lungs fair air movement. No wheezing noted. Diminished breath sounds in the bases. Chest tube will expansion. Abdomen is obese. Soft. Nontender. Nondistended. Extremities positive distal pedal pulses. No edema noted. Labs/Xrays Labs Test 10/24/24 11:50 10/24/24 08:31 10/24/24 08:01 Range/Units Lactic Acid Level 3.2 *H 0.4-2.0 mmol/L White Blood Count 14.7 H 4.4-10.8 10^3/uL Red Blood Count 2.98 L 4.5-5.90 10^6/uL Hemoglobin 9.1 L 13.5-17.5 g/dL Hematocrit 28.0 L 41.0-53.0 % Mean Corpuscular Volume 94.0 80.0-100.0 fL Mean Corpuscular Hemoglobin 30.5 28.0-32.0 pg Mean Corpuscular Hemoglobin Concent 32.4 32.0-36.0 g/dL Red Cell Distribution Width 13.8 11.8-14.3 % Platelet Count 261 140-450 10^3/uL Mean Platelet Volume 9.4 6.9-10.8 fL Neutrophils (%) (Auto) 37.0-80.0 % Lymphocytes (%) (Auto) 10.0-50.0 % Monocytes (%) (Auto) 0.0-12.0 % Basophils (%) (Auto) 0.0-2.0 % Neutrophils # (Auto) 1.6-8.6 10 ^3/uL Lymphocytes # (Auto) 0.4-5.4 10 ^3/uL Monocytes # (Auto) 0-1.3 10 ^3/uL Differential Total Cells Counted 100.0 100 Neutrophils % (Manual) 92 H 37.0-80.0 Band Neutrophils % (Manual) 0 Lymphocytes % (Manual) 6 L 10.0-50.0 Monocytes % (Manual) 2 0-12 Eosinophils % (Manual) 0 0-7 Basophils % (Manual) 0 0.0-2.0 Metamyelocytes % (manual) 0 Myelocytes % (Manual) 0 Promyelocytes % (Manual) 0 Blast Cells % (Manual) 0 Reactive Lymphocytes 0 Platelet Estimate Adequate Clumped Platelets None D-Dimer, Quantitative 0.60 H 0.0-0.49 mg/L FEU Sodium Level 139 136-145 mmol/L Potassium Level 4.2 3.5-5.1 mmol/L Chloride Level 106 98-107 mmol/L Carbon Dioxide Level 21 20-31 mmol/L Anion Gap 12 5-15 Blood Urea Nitrogen 38 H 9-23 mg/dL Creatinine 3.73 H 0.700-1.30 mg/dL Glomerular Filtration Rate Calc 17 >90 mL/min BUN/Creatinine Ratio 10.2 10.0-20.0 Serum Glucose 254 H 74-106 mg/dL Calcium Level 9.1 8.7-10.4 mg/dL Troponin I High Sensitivity 248 *H </=54 ng/L POC Glucose 250 H 70-106 mg/dl SEPSIS Sepsis Screen Date sepsis recognized/suspect: Oct 24, 2024 Time Sepsis recognized/suspect: 102 Recent Procedure: No On Antibiotic Therapy: Yes Respiratory Rate >20: Yes Heart Rate >90: No Temp<36 C (96.8 F) or >38.3 C: No SBP <90 or MAP <65 mmHG: No New Acute Mental Status Change: No Is the patient on CPAP, BIPAP,: No Physician Orders Chest Portable (10/24/24 08:12) Blood Culture (10/24/24 09:35) Nm Vq Scan (10/24/24 10:27) Sodium Chloride 0.9% (10/24/24 12:00) Bilat Lower Dvt (10/24/24 12:50) Sodium Chloride 0.9% (10/24/24 13:30) Admit (10/24/24 14:00) Cardiac Diet-2gna,Lofat,Lochol (10/24/24 Dinner) Echo 2d Mode Cardiac Dop (10/24/24 14:00) *Consult / (10/24/24 14:00) Nitroglycerin Sublingual (Ntrostat Subli (10/24/24 14:00) Morphine Sulfate Injection (10/24/24 14:00) Stat Ekg For Chest Pain (10/24/24 14:00) Notify Md Of Changes From Base (10/24/24 14:00) Child Support Case Officer For 24 Hours (10/24/24 14:00) Emergency Dysrhythmia Protocol (10/24/24 14:00) Rhythm Strips Once Every Shift (10/24/24 14:00) Oxygen By Nasal Cannula (10/24/24 14:00) Troponin-I Hs (10/24/24 17:00) Glucose Blood (Accu-Chek Comfort Curve T (10/24/24 17:00) Insulin R (Human) (Insulin R) (10/24/24 22:00) Insulin R (Human) (Insulin R) (10/24/24 17:00) Dextrose 50% Syringe (10/24/24 14:00) Ceftriaxone 1gm/50ml D5w (Rocephin) (10/25/24 09:00) Azithromycin 500mg/ 250ml (Zithromax 50 (10/25/24 10:00) Famotidine Tablet (Pepcid Tablet) (10/24/24 22:00) Ondansetron Hcl (Zofran) (10/24/24 14:00) Enoxaparin Sodium (Lovenox) (10/24/24 22:00) Hydralazine Injection (Apresoline Inject (10/24/24 14:00) Carvedilol Tablet (Coreg Tablet) (10/24/24 22:00) Iron Panel (10/24/24 14:00) Ferritin (10/24/24 14:00) Stool Occult Blood (10/24/24 14:00) Basic Metabolic Panel (10/25/24 04:00) Complete Blood Count (10/25/24 04:00) Rapid Influenza A&B (10/24/24 14:00) Covid19 Antigen Shelia (10/24/24 14:00) NS (10/24/24 14:15) NS (10/24/24 14:15) Lactic Acid W/ Reflex Order (10/24/24 18:00) Lactic Acid W/ Reflex Order (10/25/24 00:00) Lactic Acid W/ Reflex Order (10/25/24 06:00) Vital Signs Date Time Temp Pulse Resp B/P (MAP) Pulse Ox O2 Delivery O2 Flow Rate FiO2 10/24/24 12:33 89 145/50 (81) 10/24/24 12:00 95 10/24/24 11:32 93 10/24/24 10:20 Nasal Cannula* 4 36 10/24/24 10:18 97.8 97 24 172/87 (115) 97 97.8 10/24/24 10:11 172/87 10/24/24 09:06 18 92 Nasal Cannula* 3 32 10/24/24 08:05 97.9 98 22 151/79 (103) 96 97.9 Laboratory Tests Test 10/24/24 08:31 10/24/24 10:00 10/24/24 11:50 White Blood Count 14.7 10^3/uL (4.4-10.8) H Lactic Acid Level 2.9 mmol/L (0.4-2.0) *H 3.2 mmol/L (0.4-2.0) *H Medications Medications Dose Ordered Sig/Bossman Route Start Time Stop Time Status Last Admin Dose Admin Albuterol 5 mg ONCE ONCE NEB 10/24/24 08:45 10/24/24 08:46 DC 10/24/24 09:06 5 MG Enoxaparin Sodium 120 mg ONCE ONCE SC 10/24/24 10:30 10/24/24 10:31 DC 10/24/24 10:32 120 MG Furosemide 40 mg ONCE ONCE IV 10/24/24 09:45 10/24/24 09:46 DC 10/24/24 10:11 40 MG Ipratropium [place] 0.5 mg ONCE ONCE NEB 10/24/24 08:45 10/24/24 08:46 DC 10/24/24 09:06 0.5 MG Levofloxacin/ Dextrose 100 ml @ 100 mls/hr ONCE ONCE IV 10/24/24 09:45 10/24/24 10:44 DC 10/24/24 10:10 100 MLS/HR Methylprednisolone Sodium Succinate 125 mg ONCE ONCE IV 10/24/24 08:45 10/24/24 08:46 DC 10/24/24 10:10 125 MG Sodium Chloride 1,000 ml @ 150 mls/hr Q6H40M ONCE IV 10/24/24 12:00 10/24/24 18:39 10/24/24 12:54 150 MLS/HR Sodium Chloride 1,000 ml @ 1,000 mls/hr Q1H ONCE IV 10/24/24 12:00 10/24/24 12:59 DC 10/24/24 11:59 1,000 MLS/HR Sodium Chloride 1,000 ml @ 1,000 mls/hr Q1H ONCE IV 10/24/24 13:30 10/24/24 14:29 10/24/24 13:32 1,000 MLS/HR Vancomycin HCl 200 ml @ 200 mls/hr ONCE ONCE IV 10/24/24 09:45 10/24/24 10:44 DC 10/24/24 10:10 200 MLS/HR Assessment/Plan Assessment/Plan Clinically stable at present. Not tachycardic or hypotensive. No fever. Lactic acid mildly elevated. Troponins are also mildly elevated and he is evaluated by Cardiology in the ER. Mild leukocytosis. Given his shortness for breath with symptoms leukocytosis and elevated lactic acid we will start him on empiric IV fluids and IV antibiotics. We will follow blood and urine cultures. Given slightly elevated D-dimer with underlying chronic kidney disease patient received Lovenox in the ER by ER physician and ordered a V/Q scan. I will also order ultrasound of the legs to rule out DVT. We will do serial lactic acid levels. I will check his lipid panel and A1c levels. We will do echocardiogram. Follow the troponin trends. Patient is also anemic but does not given history of acute active bleeding. We will check his iron panel and stool occult blood. Put him on DVT GI prophylaxis. Otherwise continue rest of supportive care and treatment. His further clinical management will depend on his clinical course and pending evaluations study results as well as recommendations from the consultants. Discussed with the patient regarding his care plan. At present his condition remains guarded. Plan discussed with: Patient, Other My Orders Orders - SHYANN TREVIÑO MD Procedure Category Date Status Time Bilat Lower Dvt US 10/24/24 Resulted 12:50 Admit ADMIT 10/24/24 Transmitted 14:00 Cardiac DIET 10/24/24 Transmitted Diet-2gna,Lofat,Lochol Dinner Echo 2d Mode Cardiac US 10/24/24 Logged DOP 14:00 *Consult CONS 10/24/24 Transmitted / 14:00 Nitroglycerin PHA 10/24/24 Logged Sublingual (Ntrostat 14:00 Morphine Sulfate PHA 10/24/24 Logged Injection 14:00 Stat Ekg For Chest JESSE 10/24/24 In Process Pain 14:00 Notify Md Of Changes JESSE 10/24/24 In Process From Base 14:00 Child Support Case Officer For [facility] 10/24/24 In Process 24 Hours 14:00 Emergency Dysrhythmia [facility] 10/24/24 In Process Protocol 14:00 Rhythm Strips Once [facility] 10/24/24 In Process Every Shift 14:00 Oxygen By Nasal RT 10/24/24 Transmitted Cannula 14:00 Troponin-I Hs LAB 10/24/24 Logged 17:00 Glucose Blood PHA 10/24/24 Logged (Accu-Chek Comfort 17:00 Insulin R (Human) PHA 10/24/24 Logged (Insulin R) 22:00 Insulin R (Human) PHA 10/24/24 Logged (Insulin R) 17:00 Dextrose 50% Syringe PHA 10/24/24 Logged 14:00 Ceftriaxone 1gm/50ml PHA 10/25/24 Logged D5w (Rocephin) 09:00 Azithromycin 500mg/ PHA 10/25/24 Logged 250ml (Zithromax 50 10:00 Famotidine Tablet PHA 10/24/24 Logged (Pepcid Tablet) 22:00 Ondansetron Hcl PHA 10/24/24 Logged (Zofran) 14:00 Enoxaparin Sodium PHA 10/24/24 Logged (Lovenox) 22:00 Hydralazine Injection PHA 10/24/24 Logged (Apresoline Inject 14:00 Carvedilol Tablet PHA 10/24/24 Logged (Coreg Tablet) 22:00 Iron Panel LAB 10/24/24 Logged 14:00 Ferritin LAB 10/24/24 Logged 14:00 Stool Occult Blood LAB 10/24/24 Logged 14:00 Basic Metabolic Panel LAB 10/25/24 Verified 04:00 Complete Blood Count LAB 10/25/24 Verified 04:00 Rapid Influenza A&B LAB 10/24/24 Logged 14:00 Covid19 Antigen Shelia LAB 10/24/24 Logged 14:00 NS PHA 10/24/24 Transmitted 14:15 NS PHA 10/24/24 Transmitted 14:15 Lactic Acid W/ Reflex LAB 10/24/24 Transmitted Order 18:00 Lactic Acid W/ Reflex LAB 10/25/24 Verified Order 00:00 Lactic Acid W/ Reflex LAB 10/25/24 Verified Order 06:00 Problem List: (1) Respiratory failure, acute (2) Uncontrolled diabetes mellitus (3) Hypertension (4) CHF (congestive heart failure) (5) Pneumonitis SHYANN TREVIÑO MD Oct 24, 2024 14:13
[2024-10-24] MEDS: SODIUM CHLORIDE 0.9% 500 ML IV ONE (14:23)
[2024-10-24 14:26] LABS: Iron 15.0 ug/dL (65-175)
[2024-10-24 14:28] LABS: Total Iron Binding Capacity 319.0 ug/dL (250-425)
--- NOTE | 2024-10-24 14:53 | DVH ---
NUCLEAR MEDICINE VENTILATION/PERFUSION LUNG SCAN. INDICATION: PULMONARY EMBOLISM TECHNIQUE: Following intravenous demonstration of 6 millicuries of technetium 99m MAA, and inhalati on of 40 mCi of Tc 99m DTPA scintigrams were obtained in multiple projections of the lungs. FINDINGS: There is normal uptake of radionuclide on both the ventilation and perfusion portions of the examinat ion. No mismatched perfusion defects are demonstrated. Uptake is normally homogeneous. IMPRESSION: Low probability for PE.
--- NOTE | 2024-10-24 15:13 | DVH ---
INDICATION: Kidney failure TECHNIQUE: Multiple real-time sonographic images of the kidneys and bladder were obtained. COMPARISON: US KIDNEY on DOS: 11/17/22, KIDNEY on DOS: 04/26/19 FINDINGS: The right kidney measures 12 cm in length, which is normal in size. There is increased echo genicity of the right kidney. No hydronephrosis. The left kidney measures 12 cm in length, which is normal in size. There is increased echogenicity of the left kidney. No hydronephrosis. No large intraluminal masses are seen in the bladder. Prior to voiding the bladder volume measures vo lume 414 cc. IMPRESSION: Distended bladder. Bilateral medical renal disease.
[2024-10-24 15:21] LABS: COVID19 ANTIGEN SOFIA FIA NEGATIVE (NEGATIVE)
--- NOTE | 2024-10-24 16:50 | DVHINCON2 ---
Date of service: Oct 24, [address] johnson Reason for Consultation Acute kidney injury History of Present Illness 63-year-old male past medical history of hypertension, diabetes, BPH, chronic kidney disease stage 4 last seen in my renal clinic in 2023. Patient presents to the hospital complaining of shortness of breath and cough for the last few days. Patient was admitted with a diagnosis of pneumonia, he was also seen by Cardiology due to concern for elevated troponins. Diagnosed with NSTEMI status post Lasix and was given imaging negative for pulmonary embolism. Nephrology consulted for elevated creatinine level. Allergies: Coded Allergies: NO KNOWN ALLERGIES (Unverified , 05/22/20) Home Meds Active Scripts Meclizine HCl (Meclizine 25) 25 Mg Tab, 25 MG PO DAILY for 5 Days, #5 TAB Prov:OSWALD PAUL MD 12/02/22 Cephalexin Monohydrate (Cephalexin) 500 Mg Cap, 1 CAP PO TID, #15 CAP Prov:TRIPP MARINA MD 11/19/22 Potassium Chloride (Potassium Chloride ER) 20 Meq Tab, 20 MEQ PO DAILY, #30 MG Prov:VIRGINIA FANG MD 04/27/19 Tamsulosin Hcl (Flomax) 0.4 Mg Cap, 0.4 MG PO QPM, #30 CAP Prov:VIRGINIA FANG MD 04/27/19 Metoprolol Tartrate (LOPRESSOR TABLET) 50 Mg Tb, 50 MG PO BID, #60 TAB Prov:VIRGINIA FANG MD 04/27/19 Furosemide (Furosemide) 40 Mg Tab, 40 MG PO DAILY, #30 TAB Prov:VIRGINIA FANG MD 04/27/19 Amlodipine Besylate (NORVASC TABLET) 5 Mg Tb, 10 MG PO DAILY, #30 TAB Prov:VIRGINIA FANG MD 04/27/19 Reported Medications Finasteride (Finasteride) 5 Mg Tab, 5 MG PO DAILY for 30 Days, MG 05/22/20 Metformin Hydrochloride (Metformin Hcl) 850 Mg Tab, 850 MG PO DAILY for 30 Days, MG 05/22/20 Cholecalciferol (Vitamin D) 1,000 Unit Tab, 1000 UNIT PO DAILY, TAB 05/22/20 Hydralazine Hcl (Hydralazine Hcl) 25 Mg Tab, 25 MG PO DAILY for 30 Days, MG 05/22/20 Lisinopril (Lisinopril) 10 Mg Tab, 10 MG PO DAILY for 30 Days, MG 05/22/20 Current Medications Current Medications Medications (Trade) Dose Ordered Sig/Bossman Route PRN Reason Start Time Stop Time Status Last Admin Nitroglycerin (Ntrostat Sublingual) 0.4 mg Q5MINP PRN SL FOR CHEST PAIN 10/24/24 14:00 Morphine Sulfate 2 mg Q30M PRN IV FOR CHEST PAIN 10/24/24 14:00 Diagnostic Test (Pha) (Accu-Chek Comfort Curve T) 1 strip ACHS 10/24/24 17:00 Insulin Human Regular (InsuLIN R) HS SC 10/24/24 22:00 Insulin Human Regular (InsuLIN R) AC SC 10/24/24 17:00 Dextrose 50 ml UD PRN IV Blood Sugar LESS THAN 60 10/24/24 14:00 Ceftriaxone Sodium 50 ml @ 100 mls/hr DAILY@09 IV 10/25/24 09:00 Azithromycin 250 ml @ 125 mls/hr DAILY IV 10/25/24 10:00 Famotidine (Pepcid Tablet) 20 mg Q12HR PO 10/24/24 22:00 Ondansetron HCl (Zofran) 4 mg Q4HPRN PRN IV NAUSEA / VOMITING 10/24/24 14:00 Enoxaparin Sodium (Lovenox) 100 mg Q12HR SC 10/24/24 22:00 10/24/24 14:19 DC Hydralazine HCl (Apresoline Injection) 10 mg Q6HP PRN IV SBP>150 10/24/24 14:00 Carvedilol (Coreg Tablet) 6.25 mg Q12HR PO 10/24/24 22:00 Enoxaparin Sodium (Lovenox) 30 mg DAILY SC 10/25/24 10:00 Morphine Sulfate 2 mg Q4HPRN PRN IV SEVERE PAIN (7-10 PAIN SCALE) 10/24/24 14:15 Levalbuterol HCl (Xopenex Medneb) 0.625 mg Q6HR NEB 10/24/24 18:00 Ipratropium [place] (Atrovent Medneb) 0.5 mg Q6HWA NEB 10/24/24 18:00 Family History: Cardiovascular disease G8 MOTHER, G8 FATHER, Review of Systems Shortness of breath and cough H&P Exam Vital Signs/I&O Vital Sign Date Time Temp Pulse Resp B/P (MAP) Pulse Ox O2 Delivery O2 Flow Rate FiO2 10/24/24 16:10 98.3 97 22 159/83 (108) 95 98.3 10/24/24 14:48 Nasal Cannula 4.0 10/24/24 14:48 36 Physical Exam Obese male Not in overt distress mild cough Mild crackles at bases Large distended abdomen no fluid wave Diffuse ecchymosis bilateral lower extremities Labs/Diagnostic Data Labs/Diagnostic Data Laboratory Tests Test 10/24/24 14:15 10/24/24 11:50 10/24/24 10:00 10/24/24 08:31 Range/Units SARS-CoV-2 Antigen (Rapid) Negative NEGATIVE Lactic Acid Level 3.2 *H 2.9 *H 0.4-2.0 mmol/L White Blood Count 14.7 H 4.4-10.8 10^3/uL Red Blood Count 2.98 L 4.5-5.90 10^6/uL Hemoglobin 9.1 L 13.5-17.5 g/dL Hematocrit 28.0 L 41.0-53.0 % Mean Corpuscular Volume 94.0 80.0-100.0 fL Mean Corpuscular Hemoglobin 30.5 28.0-32.0 pg Mean Corpuscular Hemoglobin Concent 32.4 32.0-36.0 g/dL Red Cell Distribution Width 13.8 11.8-14.3 % Platelet Count 261 140-450 10^3/uL Mean Platelet Volume 9.4 6.9-10.8 fL Neutrophils (%) (Auto) 37.0-80.0 % Lymphocytes (%) (Auto) 10.0-50.0 % Monocytes (%) (Auto) 0.0-12.0 % Basophils (%) (Auto) 0.0-2.0 % Neutrophils # (Auto) 1.6-8.6 10 ^3/uL Lymphocytes # (Auto) 0.4-5.4 10 ^3/uL Monocytes # (Auto) 0-1.3 10 ^3/uL Differential Total Cells Counted 100.0 100 Neutrophils % (Manual) 92 H 37.0-80.0 Band Neutrophils % (Manual) 0 Lymphocytes % (Manual) 6 L 10.0-50.0 Monocytes % (Manual) 2 0-12 Eosinophils % (Manual) 0 0-7 Basophils % (Manual) 0 0.0-2.0 Metamyelocytes % (manual) 0 Myelocytes % (Manual) 0 Promyelocytes % (Manual) 0 Blast Cells % (Manual) 0 Reactive Lymphocytes 0 Platelet Estimate Adequate Clumped Platelets None D-Dimer, Quantitative 0.60 H 0.0-0.49 mg/L FEU Sodium Level 139 136-145 mmol/L Potassium Level 4.2 3.5-5.1 mmol/L Chloride Level 106 98-107 mmol/L Carbon Dioxide Level 21 20-31 mmol/L Anion Gap 12 5-15 Blood Urea Nitrogen 38 H 9-23 mg/dL Creatinine 3.73 H 0.700-1.30 mg/dL Glomerular Filtration Rate Calc 17 >90 mL/min BUN/Creatinine Ratio 10.2 10.0-20.0 Serum Glucose 254 H 74-106 mg/dL Calcium Level 9.1 8.7-10.4 mg/dL Iron Level 15 L 65-175 ug/dL Total Iron Binding Capacity 319 250-425 ug/dL Percent Iron Saturation 4.7 L 20-55 % Ferritin 21.0 L 22-322 ng/mL Troponin I High Sensitivity 248 *H </=54 ng/L B-Type Natriuretic Peptide 440.78 0-100 pg/mL Test 10/24/24 08:01 Range/Units POC Glucose 250 H 70-106 mg/dl Assessment 63-year-old male past medical history of chronic kidney disease stage 4 hypertension diabetes and BPH presents to hospital with shortness of breath was diagnosed with pneumonia. Acute kidney injury hemodynamically mediated Chronic kidney disease stage 4 Sepsis secondary to pneumonia CHF NSTEMI Hypertension anemia with severe iron deficiency BPH Discontinue IV fluids Agree with IV antibiotics broad-spectrum for pneumonia Lasix IV Obtain urinalysis and urine protein creatinine ratio Currently on Coreg for hypertension, in the morning if continues to have high blood pressure then recommend starting calcium channel bridgett. Advised against JOSE MARIA inhibitor ARB use at this time Start IV iron loading dose for severe iron deficiency and Epogen Patient had ultrasound which showed a distended bladder but no hydronephrosis monitor I&O with accurate recordings daily. If patient has a postvoid residual then we will recommend Ruiz catheter placement No emergent indication for dialysis at this time Contain metabolic labs including phosphorus and PTH and vitamin-D level. care time 55mins Plan discussed with: Patient MARTINA HARRIS MD Oct 24, 2024 16:50
[2024-10-24] MEDS: ACCU-CHEK COMFORT CURVE STRIP VI SCH (17:40)
[2024-10-24] MEDS: InsuLIN REG 1unit/0.01ml Soln (100units/ml) SC SCH ×2 (17:50→22:34)
[2024-10-24] MEDS: IRON SUCROSE COMPLEX 110 ML IV SCH (17:50)
[2024-10-24] MEDS ORDERED: IPRATROPIUM BROM 0.5 MG/2.5ML INH SOL NEB SCH (18:00)
[2024-10-24] MEDS ORDERED: LEVALBUTEROL HCL 1.25 MG/3 ML NEB NEB SCH (18:00)
[2024-10-24] MEDS: IPRATROPIUM BROM 0.5 MG/2.5ML INH SOL ONE (18:23)
[2024-10-24] MEDS: LEVALBUTEROL HCL 1.25 MG/3 ML NEB ONE (18:23)
[2024-10-24] MEDS: IPRATROPIUM BROM 0.5 MG/2.5ML INH SOL NEB PRN (18:27)
[2024-10-24] MEDS: LEVALBUTEROL HCL 1.25 MG/3 ML NEB NEB PRN (18:27)
[2024-10-24 19:51] LABS: Urine Amorphous Crystal FEW /hpf (None Seen); Urine Protein, UAD 1+ (Negative)
[2024-10-24 19:55] LABS: Lactic Acid w/Reflex 3.2 mmol/L (0.4-2.0)
[2024-10-24 19:58] LABS: Protein, Urine 160.3 mg/dL (1-14)
[2024-10-24] MEDS: FAMOTIDINE 20 MG TAB PO SCH (21:39)
[2024-10-24] MEDS: CARVEDILOL 3.125 MG TAB PO SCH (21:39)
[2024-10-24] MEDS ORDERED: ENOXAPARIN SOD 100 MG/1 ML SYRINGE SC SCH (22:00)
[2024-10-24] MEDS: INSULIN LANTUS (GLARGINE) 1 /0.01ml (100units/ml) SC SCH (22:34)
[2024-10-25] VITALS (11 sets, daily range): BP systolic 106–137; BP diastolic 52–86; PULSE 72–96; RESP 16–20; TEMP 97.3–98.1; O2SAT 80–98
[2024-10-25 00:59] LABS: Lactic Acid w/Reflex 2.5 mmol/L (0.4-2.0)
[2024-10-25] MEDS ORDERED: DEXTROSE (50%) 50ML SYRG IV PRN (02:30)
[2024-10-25] MEDS: InsuLIN REG 1unit/0.01ml Soln (100units/ml) SC SCH ×2 (06:24→21:58)
[2024-10-25] MEDS: ACCU-CHEK COMFORT CURVE STRIP VI SCH (06:24)
[2024-10-25 07:31] LABS: Nucleated Red Blood Cells % 0.0 %
[2024-10-25 07:34] LABS: Hematocrit 22.3 % (41.0-53.0); Hemoglobin 7.4 g/dL (13.5-17.5); Mean Corpuscular Hemoglobin 30.5 pg (28.0-32.0); Mean Corpuscular Volume 92.4 fL (80.0-100.0)
[2024-10-25 07:38] LABS: Anion Gap 13 (5-15); Carbon Dioxide 21 mmol/L (20-31); Chloride 106 mmol/L (98-107); Potassium 4.1 mmol/L (3.5-5.1); Sodium 140 mmol/L (136-145)
[2024-10-25 07:43] LABS: Glucose 89 mg/dL (74-106)
[2024-10-25 07:44] LABS: BUN/Creatinine Ratio 13.4 (10.0-20.0); Blood Urea Nitrogen 50 mg/dL (9-23); Calcium 8.2 mg/dL (8.7-10.4)
[2024-10-25] MEDS: FINASTERIDE 5 MG TAB PO SCH (08:52)
[2024-10-25] MEDS: FUROSEMIDE 40 MG/4 ML VIAL IV SCH (08:53)
[2024-10-25] MEDS: cefTRIAXone 1GM/50ML D5W 50 ML IV SCH (08:53)
[2024-10-25] MEDS: ENOXAPARIN SOD 30 MG/0.3 ML SYRINGE SC SCH (08:54)
--- NOTE | 2024-10-25 11:28 | DVHPN2 ---
Progress Note Date Seen: Oct 25, 2024 Medical Necessity Reason Pt with a Central, PICC or Fol: No Subjective Patient reports: Feels better Objective vital signs Vital Sign Date Time Temp Pulse Resp B/P (MAP) Pulse Ox O2 Delivery O2 Flow Rate FiO2 10/25/24 09:12 97.3 80 16 137/86 (103) 94 97.3 10/25/24 06:26 Nasal Cannula 2.0 10/25/24 06:26 28 Total Intake and Output 10/24/24 10/24/24 10/25/24 15:00 23:00 07:00 Intake Total 150 ml 0 ml 800 ml Balance 150 ml 0 ml 800 ml medications Current Medications Medications Dose Ordered Sig/Bossman Route Start Time Stop Time Status Last Admin Dose Admin Nitroglycerin 0.4 mg Q5MINP PRN SL 10/24/24 14:00 Morphine Sulfate 2 mg Q30M PRN IV 10/24/24 14:00 Ceftriaxone Sodium 50 ml @ 100 mls/hr DAILY@09 IV 10/25/24 09:00 10/25/24 08:53 100 MLS/HR Azithromycin 250 ml @ 125 mls/hr DAILY IV 10/25/24 10:00 Famotidine 20 mg Q12HR PO 10/24/24 22:00 10/25/24 08:52 20 MG Ondansetron HCl 4 mg Q4HPRN PRN IV 10/24/24 14:00 Hydralazine HCl 10 mg Q6HP PRN IV 10/24/24 14:00 Carvedilol 6.25 mg Q12HR PO 10/24/24 22:00 10/25/24 08:53 6.25 MG Enoxaparin Sodium 30 mg DAILY SC 10/25/24 10:00 10/25/24 08:54 30 MG Morphine Sulfate 2 mg Q4HPRN PRN IV 10/24/24 14:15 Furosemide 40 mg DAILY IV 10/25/24 10:00 10/25/24 08:53 40 MG Iron Sucrose 110 ml @ 110 mls/hr DAILY@1200 IV 10/24/24 16:45 10/28/24 12:59 10/24/24 17:50 110 MLS/HR Finasteride 5 mg DAILY PO 10/25/24 10:00 10/25/24 08:52 5 MG Insulin Glargine 15 units HS SC 10/24/24 22:00 10/24/24 22:34 15 UNITS Ipratropium [place] 0.5 mg Q6HWA PRN NEB 10/24/24 18:15 10/24/24 18:27 0.5 MG Levalbuterol HCl 0.625 mg Q6HR PRN NEB 10/24/24 18:15 10/24/24 18:27 0.625 MG Amlodipine Besylate 10 mg QPM@2000 PO 10/24/24 20:00 10/24/24 20:49 10 MG Diagnostic Test (Pha) 1 strip ACHS 10/25/24 07:00 10/25/24 06:24 1 STRIP Insulin Human Regular AC SC 10/25/24 07:00 Insulin Human Regular HS SC 10/25/24 22:00 Dextrose 50 ml UD PRN IV 10/25/24 02:30 Examination: GENERAL:Normal, LUNGS:Abnormal, CVS:Normal, ABDOMEN:Normal laboratory and microbiology Laboratory Tests 10/25/24 05:44 Test 10/25/24 05:44 Range/Units Serum Glucose 89 # 74-106 mg/dL Microbiology Date/Time Source Procedure Growth Status 10/24/24 10:00 Blood Blood Culture - Preliminary NO GROWTH AFTER 24 HOURS OF INCUBATION. Resulted Problem List/Assessment/Plan Problem List/Assessment/Plan 63-year-old male past medical history of chronic kidney disease stage 4 hypertension diabetes and BPH presents to hospital with shortness of breath was diagnosed with pneumonia. Acute kidney injury hemodynamically mediated Chronic kidney disease stage 4 Sepsis secondary to pneumonia CHF NSTEMI Hypertension nephrotic proteinuria anemia with severe iron deficiency BPH vitamin D deficiency , hyperparathyroidism Agree with IV antibiotics broad-spectrum for pneumonia Lasix IV Currently on Coreg for hypertension, in the morning if continues to have high blood pressure then recommend starting calcium channel bridgett. Advised against JOSE MARIA inhibitor ARB use at this time Start IV iron loading dose for severe iron deficiency and Epogen Patient had ultrasound which showed a distended bladder but no hydronephrosis monitor I&O with accurate recordings daily. If patient has a postvoid residual then we will recommend Ruiz catheter placement No emergent indication for dialysis at this time Plan discussed with: Patient My Orders My Orders Orders - MARTINA HARRIS MD Procedure Category Date Status Time Cardiac DIET 10/24/24 Transmitted Diet-2gna,Lofat,Lochol Dinner Furosemide Injection PHA 10/25/24 In Process (Lasix Injection) 10:00 Iron Sucrose Complex PHA 10/24/24 In Process (Venofer) 16:45 Finasteride Tablet PHA 10/25/24 In Process (Proscar Tablet) 10:00 Strict I & O JESSE 10/24/24 In Process 16:53 Total Time (mins): 33 MARTINA HARRIS MD Oct 25, 2024 11:28
[2024-10-25] MEDS: AZITHROMYCIN 500MG/ 250ML 250 ML IV SCH (11:40)
[2024-10-25] MEDS: ERGOCALCIFEROL 50,000 UNIT(1.25MG) CAP PO SCH (11:45)
--- NOTE | 2024-10-25 12:14 | DVHPN2 ---
Progress Note - Dictate Date Seen: Oct 25, 2024 Medical Necessity Reason Pt with a Central, PICC or Fol: No Subjective Clinically feeling better. Shortness for breath has improved. V/Q scan low probability for PE. Patient is anemic with a chronic kidney disease and low vitamin-D levels. Evaluated by lehr tender and started on IV iron transfusion and vitamin-D supplementation. vital signs Vital Sign Date Time Temp Pulse Resp B/P (MAP) Pulse Ox O2 Delivery O2 Flow Rate FiO2 10/25/24 09:53 70 130/76 10/25/24 09:12 97.3 16 94 97.3 10/25/24 08:00 Nasal Cannula* 2 28 Total Intake and Output 10/24/24 10/24/24 10/25/24 15:00 23:00 07:00 Intake Total 150 ml 0 ml 800 ml Balance 150 ml 0 ml 800 ml medications Current Medications Medications Dose Ordered Sig/Bossman Route Start Time Stop Time Status Last Admin Dose Admin Nitroglycerin 0.4 mg Q5MINP PRN SL 10/24/24 14:00 Morphine Sulfate 2 mg Q30M PRN IV 10/24/24 14:00 Ceftriaxone Sodium 50 ml @ 100 mls/hr DAILY@09 IV 10/25/24 09:00 10/25/24 08:53 100 MLS/HR Azithromycin 250 ml @ 125 mls/hr DAILY IV 10/25/24 10:00 10/25/24 11:40 125 MLS/HR Famotidine 20 mg Q12HR PO 10/24/24 22:00 10/25/24 08:52 20 MG Ondansetron HCl 4 mg Q4HPRN PRN IV 10/24/24 14:00 Hydralazine HCl 10 mg Q6HP PRN IV 10/24/24 14:00 Carvedilol 6.25 mg Q12HR PO 10/24/24 22:00 10/25/24 08:53 6.25 MG Enoxaparin Sodium 30 mg DAILY SC 10/25/24 10:00 10/25/24 08:54 30 MG Morphine Sulfate 2 mg Q4HPRN PRN IV 10/24/24 14:15 Furosemide 40 mg DAILY IV 10/25/24 10:00 10/25/24 08:53 40 MG Iron Sucrose 110 ml @ 110 mls/hr DAILY@1200 IV 10/24/24 16:45 10/28/24 12:59 10/24/24 17:50 110 MLS/HR Finasteride 5 mg DAILY PO 10/25/24 10:00 10/25/24 08:52 5 MG Insulin Glargine 15 units HS SC 10/24/24 22:00 10/24/24 22:34 15 UNITS Ipratropium [place] 0.5 mg Q6HWA PRN NEB 10/24/24 18:15 10/24/24 18:27 0.5 MG Levalbuterol HCl 0.625 mg Q6HR PRN NEB 10/24/24 18:15 10/24/24 18:27 0.625 MG Amlodipine Besylate 10 mg QPM@2000 PO 10/24/24 20:00 10/24/24 20:49 10 MG Diagnostic Test (Pha) 1 strip ACHS 10/25/24 07:00 10/25/24 06:24 1 STRIP Insulin Human Regular AC SC 10/25/24 07:00 Insulin Human Regular HS SC 10/25/24 22:00 Dextrose 50 ml UD PRN IV 10/25/24 02:30 Ergocalciferol 50,000 unit Q7D PO 10/25/24 11:30 10/25/24 11:45 50,000 UNIT objective Comfortable in bed without distress. HEENT neck supple no JVD. Heart regular rate and rhythm S1-S2. Lungs fair air movement without rales wheezing. Abdomen obese soft positive bowel sounds. Extremities no edema. laboratory and microbiology Laboratory Tests 10/25/24 05:44 Test 10/25/24 05:44 Range/Units Serum Glucose 89 # 74-106 mg/dL Assessment/Plan Patient has anemia of chronic disease plus removed from chronic kidney disease. Does not have any evidence of acute bleeding. Continue IV iron supplementation. Continue vitamin-D supplementation. Continue IV Lasix daily as he is scheduled. Patient may need home oxygen given the morbid obesity with possible hypoventilation syndrome. Otherwise encouraged activity with physical therapy. Continue rest of supportive care and treatment. Adjust his insulin based on his sugars. Otherwise follow clinical management per clinical course. Discussed with the patient regarding care plan at bedside. Problems(with codes): (1) Uncontrolled diabetes mellitus (2) Respiratory failure, acute (3) Hypertension (4) CHF (congestive heart failure) (5) BPH (benign prostatic hyperplasia) (6) Diabetes mellitus Plan discussed with: Patient SHYANN TREVIÑO MD Oct 25, 2024 12:14
--- NOTE | 2024-10-25 13:59 | DVHINCON2 ---
Date of service: Oct 24, [address] Juarez Reason for Consultation Acute respiratory failure History of Present Illness History Source: Patient Exam Limitations: No limitations HPI Patient is a 63-year old gentleman with a history of morbid obesity and diabetes who presented with shortness of breath and cough. Was seen in the emergency room where chest x-ray demonstrated infiltrates consistent with pneumonia and was started on IV antibiotics. Pulmonology was consulted to assist in management. Home Meds Active Scripts Meclizine HCl (Meclizine 25) 25 Mg Tab, 25 MG PO DAILY for 5 Days, #5 TAB Prov:OSWALD PAUL MD 12/02/22 Cephalexin Monohydrate (Cephalexin) 500 Mg Cap, 1 CAP PO TID, #15 CAP Prov:TRIPP MARINA MD 11/19/22 Potassium Chloride (Potassium Chloride ER) 20 Meq Tab, 20 MEQ PO DAILY, #30 MG Prov:VIRGINIA FANG MD 04/27/19 Tamsulosin Hcl (Flomax) 0.4 Mg Cap, 0.4 MG PO QPM, #30 CAP Prov:VIRGINIA FANG MD 04/27/19 Metoprolol Tartrate (LOPRESSOR TABLET) 50 Mg Tb, 50 MG PO BID, #60 TAB Prov:VIRGINIA FANG MD 04/27/19 Furosemide (Furosemide) 40 Mg Tab, 40 MG PO DAILY, #30 TAB Prov:VIRGINIA FANG MD 04/27/19 Amlodipine Besylate (NORVASC TABLET) 5 Mg Tb, 10 MG PO DAILY, #30 TAB Prov:VIRGINIA FANG MD 04/27/19 Reported Medications Finasteride (Finasteride) 5 Mg Tab, 5 MG PO DAILY for 30 Days, MG 05/22/20 Metformin Hydrochloride (Metformin Hcl) 850 Mg Tab, 850 MG PO DAILY for 30 Days, MG 05/22/20 Cholecalciferol (Vitamin D) 1,000 Unit Tab, 1000 UNIT PO DAILY, TAB 05/22/20 Hydralazine Hcl (Hydralazine Hcl) 25 Mg Tab, 25 MG PO DAILY for 30 Days, MG 05/22/20 Lisinopril (Lisinopril) 10 Mg Tab, 10 MG PO DAILY for 30 Days, MG 05/22/20 Past Medical History Cardiac: No pertinent Hx Pulmonary: No pertinent Hx Central Nervous System: No pertinent Hx GI: No pertinent Hx Hemotology/Oncology: No pertinent Hx Hepatobiliary: No pertinent Hx Psychiatric: No pertinent Hx Musculoskeletal: No pertinent Hx Rheumotologic: No pertinent Hx Infectious Disease: No peritnent Hx ENT: No pertinent Hx Renal/: No pertinent Hx Endocrine: NIDDM Dermatology: No pertinent Hx Past Surgical History: No pertinent Hx Family History: CAD Patient Family History: Cardiovascular disease G8 MOTHER, G8 FATHER, Smoker: No Hx (Negative) Alocohol: None Drugs: None Lives with: With family Domestic Violence: Neg Review of Systems Constitutional: No symptom reported Ears, Nose, & Throat: No symptom reported Eyes: No symptom reported Pulmonary/Respiratory: Dyspnea, Cough Cardiovascular: No symptom reported Gastrointestinal: No symptom reported Genitourinary: No symptom reported Musculoskeletal: No symptom reported Skin: No symptom reported Psychiatric: No symptom reported Endocrine: No symptom reported Hemotologic/Lymphatic: No symptom reported H&P Exam Vital Signs Vital Signs Date Time Temp Pulse Resp B/P (MAP) Pulse Ox O2 Delivery O2 Flow Rate FiO2 10/25/24 09:53 70 130/76 10/25/24 09:12 97.3 16 94 97.3 10/25/24 08:00 Nasal Cannula* 2 28 General Appeara: Well developed, Well nourished, Normal Appearance Head Exam: Normal inspection Neck Exam: Normal inspection, Non-tender, Normal alignment Eye Exam: bilateral eye Normal inspection, bilateral eye PERRL, bilateral eye EOMI Ear Exam: bilateral ear Auricle normal, bilateral ear Canal normal, bilateral ear TM normal Nasal Exam: Normal inspection Mouth: Normal Inspection Pulmonary/Respiratory: Normal inspection, Normal breath sounds, Chest non- tender, Lungs clear Cardiovascular/Chest: Normal inspection, Regular rate, Normal Rhythm Peripheral Pulses: 4+ Radial (R), 4+ Radial (L), 4+ Brachial (R), 4+ Brachial (L) Abdominal Exam: Normal bowel sounds Labs/Xrays Labs Test 10/25/24 12:14 10/25/24 05:46 10/25/24 05:44 10/24/24 19:38 Range/Units POC Glucose 107 H 70-106 mg/dl Lactic Acid Level 0.8 0.4-2.0 mmol/L White Blood Count 11.7 H 4.4-10.8 10^3/uL Red Blood Count 2.41 L 4.5-5.90 10^6/uL Hemoglobin 7.4 #L 13.5-17.5 g/dL Hematocrit 22.3 #L 41.0-53.0 % Mean Corpuscular Volume 92.4 80.0-100.0 fL Mean Corpuscular Hemoglobin 30.5 28.0-32.0 pg Mean Corpuscular Hemoglobin Concent 33.0 32.0-36.0 g/dL Red Cell Distribution Width 13.3 11.8-14.3 % Platelet Count 216 140-450 10^3/uL Mean Platelet Volume 9.5 6.9-10.8 fL Neutrophils (%) (Auto) 86.4 H 37.0-80.0 % Lymphocytes (%) (Auto) 6.0 L 10.0-50.0 % Monocytes (%) (Auto) 7.3 0.0-12.0 % Eosinophils (%) (Auto) 0.0 0.0-7.0 % Basophils (%) (Auto) 0.3 0.0-2.0 % Neutrophils # (Auto) 10.1 H 1.6-8.6 10 ^3/uL Lymphocytes # (Auto) 0.7 0.4-5.4 10 ^3/uL Monocytes # (Auto) 0.9 0-1.3 10 ^3/uL Eosinophils # (Auto) 0 0-0.8 10 ^3/uL Basophils # (Auto) 0 0-0.2 10 ^3/uL Nucleated Red Blood Cells 0.0 % Sodium Level 140 136-145 mmol/L Potassium Level 4.1 3.5-5.1 mmol/L Chloride Level 106 98-107 mmol/L Carbon Dioxide Level 21 20-31 mmol/L Anion Gap 13 5-15 Blood Urea Nitrogen 50 #H 9-23 mg/dL Creatinine 3.73 H 0.700-1.30 mg/dL Glomerular Filtration Rate Calc 17 >90 mL/min BUN/Creatinine Ratio 13.4 10.0-20.0 Serum Glucose 89 # 74-106 mg/dL Calcium Level 8.2 L 8.7-10.4 mg/dL Phosphorus Level 3.8 2.4-5.1 mg/dL Vitamin D 25-Hydroxy 6.6 L 30.0-100 ng/mL Parathyroid Hormone (Intact) 376.4 H 18.4-80.1 pg/mL Urine Color Colorless Yellow Urine Clarity Clear Clear Urine pH 5.5 5.0-9.0 Urine Specific [place] 1.009 1.001-1.035 Urine Protein 1+ H Negative Urine Ketones Negative Negative Urine Blood 1+ H Negative /uL Urine Nitrite 1+ H Negative Urine Bilirubin Negative Negative Urine Urobilinogen Normal Negative mg/dL Urine Leukocyte Esterase Negative Negative /uL Urine RBC <1 0 - 3 /hpf Urine Microscopic WBC 4 H 0-3 /HPF Urine Squamous Epithelial Cells None seen <5 /hpf Urine Amorphous Crystals Few None Seen /hpf Urine Bacteria None seen None Seen /hpf Urine Creatinine 28.98 L 30.0-125.0 mg/dL Urine Protein/Creatinine Ratio 5.53 Urine Glucose 4+ H Normal mg/dL Urine Total Protein 160.3 H 1-14 mg/dL Test 10/24/24 18:24 10/24/24 14:15 10/24/24 08:31 Range/Units Troponin I High Sensitivity 159 *H </=54 ng/L SARS-CoV-2 Antigen (Rapid) Negative NEGATIVE Differential Total Cells Counted 100.0 100 Neutrophils % (Manual) 92 H 37.0-80.0 Band Neutrophils % (Manual) 0 Lymphocytes % (Manual) 6 L 10.0-50.0 Monocytes % (Manual) 2 0-12 Eosinophils % (Manual) 0 0-7 Basophils % (Manual) 0 0.0-2.0 Metamyelocytes % (manual) 0 Myelocytes % (Manual) 0 Promyelocytes % (Manual) 0 Blast Cells % (Manual) 0 Reactive Lymphocytes 0 Platelet Estimate Adequate Clumped Platelets None D-Dimer, Quantitative 0.60 H 0.0-0.49 mg/L FEU Iron Level 15 L 65-175 ug/dL Total Iron Binding Capacity 319 250-425 ug/dL Percent Iron Saturation 4.7 L 20-55 % Ferritin 21.0 L 22-322 ng/mL B-Type Natriuretic Peptide 440.78 0-100 pg/mL Microbiology Date/Time Source Procedure Growth Status 10/24/24 10:00 Blood Blood Culture - Preliminary NO GROWTH AFTER 24 HOURS OF INCUBATION. Resulted Assessment/Plan Plan Impression Acute hypoxemic respiratory failure Community acquired pneumonia Morbid obesity Atelectasis TREY Patient seen and examined Events Low oxygen requirements On 2 liters nasal cannula Vital signs stable Labs and imaging reviewed Chest x-ray shows infiltrates Management Supplemental oxygen Titrate to maintain sats 90% or above Incentive spirometry Antibiotics Bronchodilators Monitor renal function Monitor electrolytes Supplement as needed Patient may have TREY Would benefit from sleep study as outpatient Management per primary DVT prophylaxis Plan discussed with: Patient JENNIFER IVERSON MD Oct 25, 2024 13:59
--- NOTE | 2024-10-25 14:00 | DVHPN2 ---
Progress Note - Dictate Date Seen: Oct 25, 2024 Medical Necessity Reason Pt with a Central, PICC or Fol: No vital signs Vital Sign Date Time Temp Pulse Resp B/P (MAP) Pulse Ox O2 Delivery O2 Flow Rate FiO2 10/25/24 09:53 70 130/76 10/25/24 09:12 97.3 16 94 97.3 10/25/24 08:00 Nasal Cannula* 2 28 Total Intake and Output 10/24/24 10/24/24 10/25/24 15:00 23:00 07:00 Intake Total 150 ml 0 ml 800 ml Balance 150 ml 0 ml 800 ml medications Current Medications Medications Dose Ordered Sig/Bossman Route Start Time Stop Time Status Last Admin Dose Admin Nitroglycerin 0.4 mg Q5MINP PRN SL 10/24/24 14:00 Morphine Sulfate 2 mg Q30M PRN IV 10/24/24 14:00 Ceftriaxone Sodium 50 ml @ 100 mls/hr DAILY@09 IV 10/25/24 09:00 10/25/24 08:53 100 MLS/HR Azithromycin 250 ml @ 125 mls/hr DAILY IV 10/25/24 10:00 10/25/24 11:40 125 MLS/HR Famotidine 20 mg Q12HR PO 10/24/24 22:00 10/25/24 08:52 20 MG Ondansetron HCl 4 mg Q4HPRN PRN IV 10/24/24 14:00 Hydralazine HCl 10 mg Q6HP PRN IV 10/24/24 14:00 Carvedilol 6.25 mg Q12HR PO 10/24/24 22:00 10/25/24 08:53 6.25 MG Enoxaparin Sodium 30 mg DAILY SC 10/25/24 10:00 10/25/24 08:54 30 MG Morphine Sulfate 2 mg Q4HPRN PRN IV 10/24/24 14:15 Furosemide 40 mg DAILY IV 10/25/24 10:00 10/25/24 08:53 40 MG Iron Sucrose 110 ml @ 110 mls/hr DAILY@1200 IV 10/24/24 16:45 10/28/24 12:59 10/25/24 13:40 110 MLS/HR Finasteride 5 mg DAILY PO 10/25/24 10:00 10/25/24 08:52 5 MG Insulin Glargine 15 units HS SC 10/24/24 22:00 10/24/24 22:34 15 UNITS Ipratropium [place] 0.5 mg Q6HWA PRN NEB 10/24/24 18:15 10/24/24 18:27 0.5 MG Levalbuterol HCl 0.625 mg Q6HR PRN NEB 10/24/24 18:15 10/24/24 18:27 0.625 MG Amlodipine Besylate 10 mg QPM@2000 PO 10/24/24 20:00 10/24/24 20:49 10 MG Diagnostic Test (Pha) 1 strip ACHS 10/25/24 07:00 10/25/24 11:30 1 STRIP Insulin Human Regular AC SC 10/25/24 07:00 Insulin Human Regular HS SC 10/25/24 22:00 Dextrose 50 ml UD PRN IV 10/25/24 02:30 Ergocalciferol 50,000 unit Q7D PO 10/25/24 11:30 10/25/24 11:45 50,000 UNIT laboratory and microbiology Laboratory Tests 10/25/24 05:44 Test 10/25/24 05:44 Range/Units Serum Glucose 89 # 74-106 mg/dL Assessment/Plan Impression Acute hypoxemic respiratory failure Community acquired pneumonia Morbid obesity Atelectasis TREY Patient seen and examined Events Low oxygen requirements On 2 liters nasal cannula No acute events Labs and imaging reviewed Chest x-ray shows infiltrates Management Supplemental oxygen Titrate to maintain sats 90% or above Incentive spirometry Continue antibiotics F/u cultures Bronchodilators Monitor renal function Monitor electrolytes Supplement as needed Patient may have TREY Would benefit from sleep study as outpatient Management per primary DVT prophylaxis Plan discussed with: Patient JENNIFER IVERSON MD Oct 25, 2024 14:00
[2024-10-26] VITALS (11 sets, daily range): BP systolic 99–156; BP diastolic 47–77; PULSE 72–105; RESP 16–18; TEMP 97–98.5; O2SAT 92–98
[2024-10-26 07:03] LABS: Hematocrit 22.8 % (41.0-53.0); Hemoglobin 7.5 g/dL (13.5-17.5); Mean Corpuscular Hemoglobin 30.6 pg (28.0-32.0); Mean Corpuscular Volume 92.8 fL (80.0-100.0); Nucleated Red Blood Cells % 0.1 %
[2024-10-26 07:11] LABS: Anion Gap 12 (5-15); Carbon Dioxide 22 mmol/L (20-31); Chloride 105 mmol/L (98-107); Potassium 4.1 mmol/L (3.5-5.1); Sodium 139 mmol/L (136-145)
[2024-10-26 07:17] LABS: BUN/Creatinine Ratio 13.4 (10.0-20.0)
[2024-10-26 07:25] LABS: Blood Urea Nitrogen 56 mg/dL (9-23); Calcium 8.3 mg/dL (8.7-10.4); Glucose 114 mg/dL (74-106)
--- NOTE | 2024-10-26 09:30 | DVHSR ---
APPROVED REPORT EXAM: Two-dimensional and M-mode echocardiogram with Doppler and color Doppler. Blood Pressure: 145/50 mmHg INDICATION Dyspnea Respiratory failure, nstemi RISK FACTORS Obesity: Height: 6'0", Weight: 269 DIMENSIONS LVDd5.9 (3.8-5.7cm)LA (2D)4.4 (1.9-4.0cm)Aortic Root4.0 (2.0-3.7cm) LVDs4.4 (2.5-4.0cm)LA (MM) (1.9-4.0cm)Aortic Cusp Exc1.9 (1.5-2.0cm) EF (%) 50.0 (55-70%)Rt. Atrium4.1 (1.9-4.0cm)Asc. Aorta cm IVSd1.4 (0.7-1.1cm)RV (D) (1.8-2.4cm) PWd1.4 (0.7-1.1cm) Mitral Valve MitralMitral Stenosis E wave1.23m/sMV Mean GR.mmHg A wave0.87m/sMV Peak GR.mmHg E/A ratio1.42D MVAcm2 DECEL [id number] 1/2 Tim[place] Aortic Valve Aortic ValveAortic Stenosis V11.18m/Krystle Mean GR.5mmHg V21.57m/Krystle Peak GR.10mmHg LVOT Diameter2.2 (1.8-2.4cm)Doppler AVA2.86cm2 Pulmonic Valve V21.56m/s Tricuspid Valve TR Velocity3.52m/s [id number] Other Information Quality : Technically LimitedRhythm : Technically limited study due to body habitus. Conclusion LVEF 50-55%, borderline. Right ventricle size and function normal Mild left and right atrial dilation Moderate pulmonary hypertension, rvsp 55-60mmgh
--- NOTE | 2024-10-26 13:48 | DVHPN2 ---
Progress Note - Dictate Date Seen: Oct 26, 2024 Medical Necessity Reason Pt with a Central, PICC or Fol: No vital signs Vital Sign Date Time Temp Pulse Resp B/P (MAP) Pulse Ox O2 Delivery O2 Flow Rate FiO2 10/26/24 13:06 98.3 77 18 147/77 (100) 96 98.3 10/26/24 08:00 Nasal Cannula* 2 28 Total Intake and Output 10/25/24 10/25/24 10/26/24 15:00 23:00 07:00 Intake Total 600 ml 900 ml 170 ml Output Total 925 ml 400 ml Balance 600 ml -25 ml -230 ml medications Current Medications Medications Dose Ordered Sig/Bossman Route Start Time Stop Time Status Last Admin Dose Admin Nitroglycerin 0.4 mg Q5MINP PRN SL 10/24/24 14:00 Morphine Sulfate 2 mg Q30M PRN IV 10/24/24 14:00 Ceftriaxone Sodium 50 ml @ 100 mls/hr DAILY@09 IV 10/25/24 09:00 10/26/24 09:30 100 MLS/HR Azithromycin 250 ml @ 125 mls/hr DAILY IV 10/25/24 10:00 10/26/24 09:30 125 MLS/HR Ondansetron HCl 4 mg Q4HPRN PRN IV 10/24/24 14:00 Hydralazine HCl 10 mg Q6HP PRN IV 10/24/24 14:00 Carvedilol 6.25 mg Q12HR PO 10/24/24 22:00 10/26/24 09:31 6.25 MG Enoxaparin Sodium 30 mg DAILY SC 10/25/24 10:00 10/26/24 09:31 30 MG Morphine Sulfate 2 mg Q4HPRN PRN IV 10/24/24 14:15 Iron Sucrose 110 ml @ 110 mls/hr DAILY@1200 IV 10/24/24 16:45 10/28/24 12:59 10/25/24 13:40 110 MLS/HR Finasteride 5 mg DAILY PO 10/25/24 10:00 10/26/24 09:31 5 MG Insulin Glargine 15 units HS SC 10/24/24 22:00 10/25/24 21:58 15 UNITS Ipratropium [place] 0.5 mg Q6HWA PRN NEB 10/24/24 18:15 10/24/24 18:27 0.5 MG Levalbuterol HCl 0.625 mg Q6HR PRN NEB 10/24/24 18:15 10/24/24 18:27 0.625 MG Amlodipine Besylate 10 mg QPM@2000 PO 10/24/24 20:00 10/25/24 21:56 10 MG Diagnostic Test (Pha) 1 strip ACHS 10/25/24 07:00 10/26/24 11:39 1 STRIP Insulin Human Regular AC SC 10/25/24 07:00 10/26/24 11:41 2 UNITS Insulin Human Regular HS SC 10/25/24 22:00 Dextrose 50 ml UD PRN IV 10/25/24 02:30 Ergocalciferol 50,000 unit Q7D PO 10/25/24 11:30 10/25/24 11:45 50,000 UNIT Acetaminophen 650 mg Q6HP PRN PO 10/25/24 19:00 Famotidine 20 mg DAILY PO 10/27/24 10:00 laboratory and microbiology Laboratory Tests 10/26/24 05:17 Test 10/26/24 05:17 Range/Units Serum Glucose 114 H 74-106 mg/dL Assessment/Plan Impression Acute hypoxemic respiratory failure Community acquired pneumonia Morbid obesity Atelectasis TREY Patient seen and examined Events Low oxygen requirements On 2 liters nasal cannula No distress Labs and imaging reviewed Management Supplemental oxygen Titrate to maintain sats 90% or above Incentive spirometry Continue antibiotics F/u cultures Bronchodilators Monitor renal function Monitor electrolytes Supplement as needed Patient may have TREY Would benefit from sleep study as outpatient Management per primary DVT prophylaxis Plan discussed with: Patient JENNIFER IVERSON MD Oct 26, 2024 13:48
--- NOTE | 2024-10-26 14:08 | DVHPN2 ---
Progress Note - Dictate Date Seen: Oct 26, 2024 Medical Necessity Reason Pt with a Central, PICC or Fol: No Subjective Clinically feeling better. Apparently patient complained of prostate problems therefore he had a Ruiz catheter inserted last night. He wants to take it out. He says he has not been taking his prostate medications at home vital signs Vital Sign Date Time Temp Pulse Resp B/P (MAP) Pulse Ox O2 Delivery O2 Flow Rate FiO2 10/26/24 13:06 98.3 77 18 147/77 (100) 96 98.3 10/26/24 08:00 Nasal Cannula* 2 28 Total Intake and Output 10/25/24 10/25/24 10/26/24 15:00 23:00 07:00 Intake Total 600 ml 900 ml 170 ml Output Total 925 ml 400 ml Balance 600 ml -25 ml -230 ml medications Current Medications Medications Dose Ordered Sig/Bossman Route Start Time Stop Time Status Last Admin Dose Admin Nitroglycerin 0.4 mg Q5MINP PRN SL 10/24/24 14:00 Morphine Sulfate 2 mg Q30M PRN IV 10/24/24 14:00 Ceftriaxone Sodium 50 ml @ 100 mls/hr DAILY@09 IV 10/25/24 09:00 10/26/24 09:30 100 MLS/HR Azithromycin 250 ml @ 125 mls/hr DAILY IV 10/25/24 10:00 10/26/24 09:30 125 MLS/HR Ondansetron HCl 4 mg Q4HPRN PRN IV 10/24/24 14:00 Hydralazine HCl 10 mg Q6HP PRN IV 10/24/24 14:00 Carvedilol 6.25 mg Q12HR PO 10/24/24 22:00 10/26/24 09:31 6.25 MG Enoxaparin Sodium 30 mg DAILY SC 10/25/24 10:00 10/26/24 09:31 30 MG Morphine Sulfate 2 mg Q4HPRN PRN IV 10/24/24 14:15 Iron Sucrose 110 ml @ 110 mls/hr DAILY@1200 IV 10/24/24 16:45 10/28/24 12:59 10/25/24 13:40 110 MLS/HR Finasteride 5 mg DAILY PO 10/25/24 10:00 10/26/24 09:31 5 MG Insulin Glargine 15 units HS SC 10/24/24 22:00 10/25/24 21:58 15 UNITS Ipratropium [place] 0.5 mg Q6HWA PRN NEB 10/24/24 18:15 10/24/24 18:27 0.5 MG Levalbuterol HCl 0.625 mg Q6HR PRN NEB 10/24/24 18:15 10/24/24 18:27 0.625 MG Amlodipine Besylate 10 mg QPM@2000 PO 10/24/24 20:00 10/25/24 21:56 10 MG Diagnostic Test (Pha) 1 strip ACHS 10/25/24 07:00 10/26/24 11:39 1 STRIP Insulin Human Regular AC SC 10/25/24 07:00 10/26/24 11:41 2 UNITS Insulin Human Regular HS SC 10/25/24 22:00 Dextrose 50 ml UD PRN IV 10/25/24 02:30 Ergocalciferol 50,000 unit Q7D PO 10/25/24 11:30 10/25/24 11:45 50,000 UNIT Acetaminophen 650 mg Q6HP PRN PO 10/25/24 19:00 Famotidine 20 mg DAILY PO 10/27/24 10:00 objective Comfortable in bed without distress. HEENT neck supple no JVD. Heart regular rate and rhythm S1-S2. Lungs fair air movement without rales wheezing. Abdomen obese soft positive bowel sounds. Extremities no edema. laboratory and microbiology Laboratory Tests 10/26/24 05:17 Test 10/26/24 05:17 Range/Units Serum Glucose 114 H 74-106 mg/dL Assessment/Plan Continue present management. Continue Ruiz catheter today we will bladder train and remove tomorrow morning per patient request. We will check bladder scan to see if he has any residual urine. Meantime we will start him on Flomax and finasteride. Otherwise continue rest of supportive care and treatment. Monitor kidney function. We will arrange for home oxygen. If he remains stable consider discharge plan home tomorrow with outpatient follow up with the Nephrology and Urology. Discussed with the patient had a licensed physical therapist regarding care plan. Problems(with codes): (1) BPH (benign prostatic hyperplasia) (2) Respiratory failure, acute (3) Uncontrolled diabetes mellitus (4) Hypertension (5) CHF (congestive heart failure) Plan discussed with: Patient GANAPAVARAPU,SHYANN MD Oct 26, 2024 14:07
--- NOTE | 2024-10-26 15:12 | ECG ---
[facility] Test Date: 2024-10-24 Test Time: 08:04:36 Pat Name: VELIA CATALAN Department: er Room: 0219T A Gender: M [employer]: gp : 1960 Requested By: OSWALD PAUL Order Number: [id number] Reading MD: Gil Buck Measurements Intervals [place] Rate: 93 P: 22 OR: 129 QRS: 43 QRSD: 100 T: 224 QT: 353 QTc: 440 Interpretive Statements Sinus rhythm Probable left atrial enlargement Repol abnrm suggests ischemia, diffuse leads Electronically Signed On 10-26-2024 15:55:52 PDT by Gil Buck Please click the below link to view image of tracing.
--- NOTE | 2024-10-26 15:24 | DVHPN2 ---
Progress Note Date Seen: Oct 26, 2024 Medical Necessity Reason Pt with a Central, PICC or Fol: Yes The following are medically ne: Ruiz Catheter Subjective Patient reports: Feels better Objective vital signs Vital Sign Date Time Temp Pulse Resp B/P (MAP) Pulse Ox O2 Delivery O2 Flow Rate FiO2 10/26/24 13:06 98.3 77 18 147/77 (100) 96 98.3 10/26/24 08:00 Nasal Cannula* 2 28 Total Intake and Output 10/25/24 10/25/24 10/26/24 15:00 23:00 07:00 Intake Total 600 ml 900 ml 170 ml Output Total 925 ml 400 ml Balance 600 ml -25 ml -230 ml medications Current Medications Medications Dose Ordered Sig/Bossman Route Start Time Stop Time Status Last Admin Dose Admin Nitroglycerin 0.4 mg Q5MINP PRN SL 10/24/24 14:00 Morphine Sulfate 2 mg Q30M PRN IV 10/24/24 14:00 Ceftriaxone Sodium 50 ml @ 100 mls/hr DAILY@09 IV 10/25/24 09:00 10/26/24 09:30 100 MLS/HR Azithromycin 250 ml @ 125 mls/hr DAILY IV 10/25/24 10:00 10/26/24 09:30 125 MLS/HR Ondansetron HCl 4 mg Q4HPRN PRN IV 10/24/24 14:00 Hydralazine HCl 10 mg Q6HP PRN IV 10/24/24 14:00 Carvedilol 6.25 mg Q12HR PO 10/24/24 22:00 10/26/24 09:31 6.25 MG Enoxaparin Sodium 30 mg DAILY SC 10/25/24 10:00 10/26/24 09:31 30 MG Morphine Sulfate 2 mg Q4HPRN PRN IV 10/24/24 14:15 Iron Sucrose 110 ml @ 110 mls/hr DAILY@1200 IV 10/24/24 16:45 10/28/24 12:59 10/26/24 14:15 110 MLS/HR Finasteride 5 mg DAILY PO 10/25/24 10:00 10/26/24 09:31 5 MG Insulin Glargine 15 units HS SC 10/24/24 22:00 10/25/24 21:58 15 UNITS Ipratropium [place] 0.5 mg Q6HWA PRN NEB 10/24/24 18:15 10/24/24 18:27 0.5 MG Levalbuterol HCl 0.625 mg Q6HR PRN NEB 10/24/24 18:15 10/24/24 18:27 0.625 MG Amlodipine Besylate 10 mg QPM@2000 PO 10/24/24 20:00 10/25/24 21:56 10 MG Diagnostic Test (Pha) 1 strip ACHS 10/25/24 07:00 10/26/24 11:39 1 STRIP Insulin Human Regular AC SC 10/25/24 07:00 10/26/24 11:41 2 UNITS Insulin Human Regular HS SC 10/25/24 22:00 Dextrose 50 ml UD PRN IV 10/25/24 02:30 Ergocalciferol 50,000 unit Q7D PO 10/25/24 11:30 10/25/24 11:45 50,000 UNIT Acetaminophen 650 mg Q6HP PRN PO 10/25/24 19:00 Famotidine 20 mg DAILY PO 10/27/24 10:00 Examination: GENERAL:Normal, CVS:Normal, SKIN:Normal laboratory and microbiology Laboratory Tests 10/26/24 05:17 Test 10/26/24 05:17 Range/Units Serum Glucose 114 H 74-106 mg/dL Microbiology Date/Time Source Procedure Growth Status 10/24/24 10:00 Blood Blood Culture - Preliminary NO GROWTH AFTER 48 HOURS OF INCUBATION. Resulted Problem List/Assessment/Plan Problem List/Assessment/Plan 63-year-old male past medical history of chronic kidney disease stage 4 hypertension diabetes and BPH presents to hospital with shortness of breath was diagnosed with pneumonia. Acute kidney injury hemodynamically mediated Chronic kidney disease stage 4 Sepsis secondary to pneumonia CHF NSTEMI Hypertension nephrotic proteinuria anemia with severe iron deficiency BPH vitamin D deficiency , hyperparathyroidism Agree with IV antibiotics broad-spectrum for pneumonia Lasix IV Currently on Coreg for hypertension, in the morning if continues to have high blood pressure then recommend starting calcium channel bridgett. Advised against JOSE MARIA inhibitor ARB use at this time Start IV iron loading dose for severe iron deficiency and Epogen sub Q today Patient had ultrasound which showed a distended bladder but no hydronephrosis monitor I&O with accurate recordings daily. Ruiz was placed overnight due to urinary retention, per primary currently getting trial of void No emergent indication for dialysis at this time , we will need to resume outpatient renal follow-up with me for chronic kidney disease Plan discussed with: Patient My Orders My Orders Orders - MARTINA HARRIS MD Procedure Category Date Status Time Basic Metabolic Panel LAB 10/26/24 Transmitted 15:19 Total Time (mins): 35 MARTINA HARRIS MD Oct 26, 2024 15:24
[2024-10-26] MEDS: hydrALAZINE HCL 20 MG/ML VL IV PRN (16:28)
[2024-10-26 17:08] LABS: Chloride 103 mmol/L (98-107); Potassium 4.1 mmol/L (3.5-5.1); Sodium 138 mmol/L (136-145)
[2024-10-26 17:09] LABS: Anion Gap 14 (5-15); Carbon Dioxide 21 mmol/L (20-31)
[2024-10-26 17:10] LABS: Calcium 7.8 mg/dL (8.7-10.4)
[2024-10-26 17:14] LABS: BUN/Creatinine Ratio 14.4 (10.0-20.0); Blood Urea Nitrogen 58 mg/dL (9-23); Glucose 194 mg/dL (74-106)
[2024-10-26] MEDS: ACETAMINOPHEN 325 MG TAB PO PRN (19:39)
[2024-10-26] MEDS: EPOETIN ALFA-EPBX 10,000 UNIT/1ML VIAL SC ONE (21:16)
[2024-10-27] VITALS (9 sets, daily range): BP systolic 109–155; BP diastolic 51–83; PULSE 68–74; RESP 16–19; TEMP 97.5–98.9; O2SAT 92–97
[2024-10-27 06:45] LABS: Hematocrit 24.5 % (41.0-53.0); Hemoglobin 8.1 g/dL (13.5-17.5)
[2024-10-27 06:49] LABS: Mean Corpuscular Hemoglobin 30.6 pg (28.0-32.0); Mean Corpuscular Volume 93.1 fL (80.0-100.0)
[2024-10-27 06:55] LABS: Anion Gap 11 (5-15); Calcium 8.0 mg/dL (8.7-10.4); Carbon Dioxide 23 mmol/L (20-31); Chloride 105 mmol/L (98-107); Potassium 3.8 mmol/L (3.5-5.1); Sodium 139 mmol/L (136-145)
[2024-10-27 07:01] LABS: BUN/Creatinine Ratio 13.4 (10.0-20.0); Blood Urea Nitrogen 55 mg/dL (9-23); Glucose 120 mg/dL (74-106)
[2024-10-27 08:05] LABS: Total Cells Counted 100.0 (100)
[2024-10-27] MEDS: FAMOTIDINE 20 MG TAB PO SCH (09:08)
[2024-10-27] MEDS ORDERED: CHOL100029 PO (11:09)
[2024-10-27] MEDS ORDERED: BLOO-200 XX (11:09)
[2024-10-27] MEDS ORDERED: TAMS-35 PO (11:09)
[2024-10-27] MEDS ORDERED: INSLANTI SC (11:09)
[2024-10-27] MEDS ORDERED: BLOO1KIT54 XX (11:09)
[2024-10-27] MEDS ORDERED: AML5T PO (11:09)
[2024-10-27] MEDS ORDERED: MET50T PO (11:09)
[2024-10-27] MEDS ORDERED: FINA5TAB4 PO (11:09)
--- NOTE | 2024-10-27 11:13 | DVHDS2 ---
Discharge Summary Date of Admission Oct 24, 2024 at 14:00 Date of Discharge: Oct 27, 2024 Labs/Diagnostic Data: Laboratory Results Test 10/27/24 05:41 10/27/24 05:39 10/27/24 05:34 10/26/24 05:17 POC Glucose 126 mg/dl (70-106) White Blood Count 9.2 10^3/uL (4.4-10.8) Red Blood Count 2.64 10^6/uL (4.5-5.90) Hemoglobin 8.1 g/dL (13.5-17.5) Hematocrit 24.5 % (41.0-53.0) Mean Corpuscular Volume 93.1 fL (80.0-100.0) Mean Corpuscular Hemoglobin 30.6 pg (28.0-32.0) Mean Corpuscular Hemoglobin Concent 32.9 g/dL (32.0-36.0) Red Cell Distribution Width 13.8 % (11.8-14.3) Platelet Count 211 10^3/uL (140-450) Mean Platelet Volume 9.3 fL (6.9-10.8) Neutrophils (%) (Auto) % (37.0-80.0) Lymphocytes (%) (Auto) % (10.0-50.0) Monocytes (%) (Auto) % (0.0-12.0) Basophils (%) (Auto) % (0.0-2.0) Neutrophils # (Auto) 10 ^3/uL (1.6-8.6) Lymphocytes # (Auto) 10 ^3/uL (0.4-5.4) Monocytes # (Auto) 10 ^3/uL (0-1.3) Differential Total Cells Counted 100.0 (100) Neutrophils % (Manual) 80 (37.0-80.0) Band Neutrophils % (Manual) 0 Lymphocytes % (Manual) 8 (10.0-50.0) Monocytes % (Manual) 9 (0-12) Eosinophils % (Manual) 2 (0-7) Basophils % (Manual) 0 (0.0-2.0) Metamyelocytes % (manual) 0 Myelocytes % (Manual) 1 Promyelocytes % (Manual) 0 Blast Cells % (Manual) 0 Reactive Lymphocytes 0 Platelet Estimate Adequate Sodium Level 139 mmol/L (136-145) Potassium Level 3.8 mmol/L (3.5-5.1) Chloride Level 105 mmol/L (98-107) Carbon Dioxide Level 23 mmol/L (20-31) Anion Gap 11 (5-15) Blood Urea Nitrogen 55 mg/dL (9-23) Creatinine 4.09 mg/dL (0.700-1.30) Glomerular Filtration Rate Calc 16 mL/min (>90) BUN/Creatinine Ratio 13.4 (10.0-20.0) Serum Glucose 120 mg/dL (74-106) Calcium Level 8.0 mg/dL (8.7-10.4) Eosinophils (%) (Auto) 0.6 % (0.0-7.0) Eosinophils # (Auto) 0.1 10 ^3/uL (0-0.8) Basophils # (Auto) 0 10 ^3/uL (0-0.2) Nucleated Red Blood Cells 0.1 % Test 10/25/24 16:02 10/25/24 05:46 10/25/24 05:44 10/24/24 19:38 Stool Occult Blood Negative (Negative) Stool Occult Blood Sample #3 (Negative) Lactic Acid Level 0.8 mmol/L (0.4-2.0) Phosphorus Level 3.8 mg/dL (2.4-5.1) Vitamin D 25-Hydroxy 6.6 ng/mL (30.0-100) Parathyroid Hormone (Intact) 376.4 pg/mL (18.4-80.1) Urine Color Colorless (Yellow) Urine Clarity Clear (Clear) Urine pH 5.5 (5.0-9.0) Urine Specific [place] 1.009 (1.001-1.035) Urine Protein 1+ (Negative) Urine Ketones Negative (Negative) Urine Blood 1+ /uL (Negative) Urine Nitrite 1+ (Negative) Urine Bilirubin Negative (Negative) Urine Urobilinogen Normal mg/dL (Negative) Urine Leukocyte Esterase Negative /uL (Negative) Urine RBC <1 /hpf (0 - 3) Urine Microscopic WBC 4 /HPF (0-3) Urine Squamous Epithelial Cells None seen /hpf (<5) Urine Amorphous Crystals Few /hpf (None Seen) Urine Bacteria None seen /hpf (None Seen) Urine Creatinine 28.98 mg/dL (30.0-125.0) Urine Protein/Creatinine Ratio 5.53 Urine Glucose 4+ mg/dL (Normal) Urine Total Protein 160.3 mg/dL (1-14) Test 10/24/24 18:24 10/24/24 14:15 10/24/24 08:31 Troponin I High Sensitivity 159 ng/L (</=54) SARS-CoV-2 Antigen (Rapid) Negative (NEGATIVE) Clumped Platelets None D-Dimer, Quantitative 0.60 mg/L FEU (0.0-0.49) Iron Level 15 ug/dL (65-175) Total Iron Binding Capacity 319 ug/dL (250-425) Percent Iron Saturation 4.7 % (20-55) Ferritin 21.0 ng/mL (22-322) B-Type Natriuretic Peptide 440.78 pg/mL (0-100) Other Laboratory Tests 10/27/24 05:39 10/27/24 05:34 Brief Hx & Hospital Course: 63 y/o M, with PMHx of HTN, DM, and HLD presents to the ED for CC of shortness of breath. Patient states, he has been experiencing symptoms of shortness of breath x1day. Patient reports, symptoms to worsen with exertion feeling as if he is unable to catch his breath. Patient denies cough, chest pain, palpitations, fever, chills, or fatigue. No other associated symptoms, modifiers, recent injuries or sick contacts present at this time. He is admitted and underwent a Nephrology consultation. Patient had multiple issues. He is also seen by paint dipper. Patient essentially has kidney failure with in August of chronic kidney disease and low vitamin-D levels. Patient also has obesity hypoventilation syndrome. Patient received IV diuresis. Patient had ultrasound of the kidneys. Patient's creatinine has stabilized and has a stage 4 chronic kidney disease and fairly he may need dialysis if he continued to get worse. Patient counseled and educated at length regarding his weight and advised to do exercise and low-fat low-cholesterol diet and lose weight. Patient advised to seek help with primary care physician for nutrition counseling. While in the hospital patient diuresed and a shortness of breath symptoms I improved. He is empirically treated for COPD exacerbation with antibiotics steroids as well as nebulized treatments. With these modalities he is feeling better. However it is fairly he would benefit from oxygen and therefore 2 L of home oxygen is being arranged. Otherwise he is getting out of bed ambulating without any issues. Feels back to baseline normal status. Therefore it is related with several discharged home. However he is also advised to have close follow-up with his professional programmer analyst to repeat he has a kidney function test and further evaluated and managed as deemed appropriate. Given patient's history of end-stage prior studies prescribed and advised to continue Flomax and finasteride. I have talk to him regarding his hospital diagnosis, treatment he received while in the hospital, discharge medications, discharge instructions and plan of care. He has verbalized understanding of these and he has agreed to care plan as outlined. Consults/Reason for consult Problem List/Assessment/Plan 63-year-old male past medical history of chronic kidney disease stage 4 hypertension diabetes and BPH presents to hospital with shortness of breath was diagnosed with pneumonia. Acute kidney injury hemodynamically mediated Chronic kidney disease stage 4 Sepsis secondary to pneumonia CHF NSTEMI Hypertension nephrotic proteinuria anemia with severe iron deficiency BPH vitamin D deficiency , hyperparathyroidism Agree with IV antibiotics broad-spectrum for pneumonia Lasix IV Currently on Coreg for hypertension, in the morning if continues to have high blood pressure then recommend starting calcium channel bridgett. Advised against JOSE MARIA inhibitor ARB use at this time Start IV iron loading dose for severe iron deficiency and Epogen sub Q today Patient had ultrasound which showed a distended bladder but no hydronephrosis monitor I&O with accurate recordings daily. Ruiz was placed overnight due to urinary retention, per primary currently getting trial of void No emergent indication for dialysis at this time , we will need to resume outpatient renal follow-up with me for chronic kidney disease Plan discussed with: Patient My Orders My Orders Orders - MARTINA HARRIS MD Procedure Category Date Status Time Basic Metabolic Panel LAB 10/26/24 Transmitted 15:19 Total Time (mins): 35 MARTINA HARRIS MD Oct 26, 2024 15:24 Operations or Procedures PROCEDURE(s): KIDUS - KIDNEY REASON: Kidney failure ORDER NUMBER(s): [id number], ACCESSION NUMBER(s): [id number] INDICATION: Kidney failure TECHNIQUE: Multiple real-time sonographic images of the kidneys and bladder were obtained. COMPARISON: US KIDNEY on DOS: 11/17/22, KIDNEY on DOS: 04/26/19 FINDINGS: The right kidney measures 12 cm in length, which is normal in size. There is increased echogenicity of the right kidney. No hydronephrosis. The left kidney measures 12 cm in length, which is normal in size. There is increased echogenicity of the left kidney. No hydronephrosis. No large intraluminal masses are seen in the bladder. Prior to voiding the bladder volume measures volume 414 cc. IMPRESSION: Distended bladder. Bilateral medical renal disease. EDURE(s): ECIDC - ECHO 2D MODE CARDIAC DOP REASON: Respiratory failure ORDER NUMBER(s): [id number], ACCESSION NUMBER(s): [id number] APPROVED REPORT EXAM: Two-dimensional and M-mode echocardiogram with Doppler and color Doppler. Blood Pressure: 145/50 mmHg INDICATION Dyspnea Respiratory failure, nstemi RISK FACTORS Obesity: Height: 6'0", Weight: 269 DIMENSIONS LVDd 5.9 (3.8-5.7cm) LA (2D) 4.4 (1.9-4.0cm) Aortic Root 4.0 (2.0- 3.7cm) LVDs 4.4 (2.5-4.0cm) LA (MM) (1.9-4.0cm) Aortic Cusp Exc 1.9 (1.5- 2.0cm) EF (%) 50.0 (55-70%) Rt. Atrium 4.1 (1.9-4.0cm) Asc. Aorta cm IVSd 1.4 (0.7-1.1cm) RV (D) (1.8-2.4cm) PWd 1.4 (0.7-1.1cm) Mitral Valve Mitral Mitral Stenosis E wave 1.23m/s MV Mean GR. mmHg A wave 0.87m/s MV Peak GR. mmHg E/A ratio 1.4 2D MVA cm2 DECEL Time 172ms PRESS 1/2 Time ms Aortic Valve Aortic Valve Aortic Stenosis V1 1.18m/s AO Mean GR. 5mmHg V2 1.57m/s AO Peak GR. 10mmHg LVOT Diameter 2.2 (1.8-2.4cm) Doppler KENNETH 2.86cm2 Pulmonic Valve V2 1.56m/s Tricuspid Valve TR Velocity 3.52m/s RVSP 58mmHg Other Information Quality : Technically Limited Rhythm : Technically limited study due to body habitus. Conclusion LVEF 50-55%, borderline. Right ventricle size and function normal Mild left and right atrial dilation Moderate pulmonary hypertension, rvsp 55-60mmgh SIGNED BY: ANGELA ROSE MD SIGNED DATE/TIME: 10/26/24 8023 Condition at Discharge: Stable Final Diagnosis/Problems List Acute hypoxemic respiratory failure, obesity hypoventilation syndrome on home O2 now, Diabetes mellitus type 2 with hyperglycemia, acute kidney injury with a CKD IV, malignant hypertension, BPH, anemia of chronic kidney disease and vitamin-D deficiency Discharge Disposition: Home Discharge Instruct/Medications Diet: Consistent carbohydrate, Cardiac 2g Na,low cholest Activity: No Restrictions, As Tolerated Follow Up/Referral: Your kidney doctor next week to repeat blood test for kidney function. Your primary care doctor after two weeks for further management of diabetes, hypertension and anemia. Medications: Take the medications as prescribed and other medications as per discharge med reconciliation list. Scheduled Amlodipine Besylate (Norvasc Tablet), 10 MG PO DAILY Cholecalciferol (Vitamin D), 1,000 UNIT PO DAILY Finasteride (Finasteride), 5 MG PO DAILY Furosemide (Furosemide), 40 MG PO DAILY Hydralazine Hcl (Hydralazine Hcl), 25 MG PO DAILY, (Reported) Insulin Glargine (Lantus), 15 UNIT SC QPM Meclizine HCl (Meclizine 25), 25 MG PO DAILY Metoprolol Tartrate (Lopressor Tablet), 50 MG PO BID Tamsulosin Hcl (Flomax), 0.4 MG PO QPM Discontinued Medications Cephalexin Monohydrate (Cephalexin), 1 CAP PO TID Lisinopril (Lisinopril), 10 MG PO DAILY, (Reported) Metformin Hydrochloride (Metformin Hcl), 850 MG PO DAILY, (Reported) Potassium Chloride (Potassium Chloride ER), 20 MEQ PO DAILY Durable Medical Equipment Blood Glucose Monitoring Suppl (Blood Glucose Monitoring W/Device), KIT XX ACHS, (DME) [facility] Devices (Blood Pressure Monitor), EA XX DAILY, (DME) Discharge Statement: "Patient was advised to return to the ER or call 911 if any headaches, dizziness, shortness of breath, chest pain, abdominal pain, bleeding, fevers, or worsening of medical condition. Patient was counseled about treatment plan, medications, possible side effects, patientverbalized understanding. All questions were answered to the best of my ability. This discharge took greater then 30 minutes in planning, reviewing documentation, counseling the patient, and discussing with other team members." ASSESSMENT ASSESSMENT Assessment Acute hypoxemic respiratory failure, obesity hypoventilation syndrome on home O2 now, Diabetes mellitus type 2 with hyperglycemia, acute kidney injury with a CKD IV, malignant hypertension, BPH, anemia of chronic kidney disease and vitamin-D deficiency SHYANN TREVIÑO MD Oct 27, 2024 11:13
--- NOTE | 2024-10-27 12:54 | DVHPN2 ---
Progress Note Date Seen: Oct 27, 2024 Medical Necessity Reason Pt with a Central, PICC or Fol: No The following are medically ne: Ruiz Catheter Subjective Patient reports: Feels better Objective vital signs Vital Sign Date Time Temp Pulse Resp B/P (MAP) Pulse Ox O2 Delivery O2 Flow Rate FiO2 10/27/24 09:07 70 120/63 10/27/24 08:10 19 94 Nasal Cannula* 2 28 10/27/24 05:00 97.5 97.5 Total Intake and Output 10/26/24 10/26/24 10/27/24 15:00 23:00 07:00 Intake Total 490 ml 1280 ml 200 ml Output Total 2100 ml 1250 ml Balance 490 ml -820 ml -1050 ml medications Current Medications Medications Dose Ordered Sig/Bossman Route Start Time Stop Time Status Last Admin Dose Admin Nitroglycerin 0.4 mg Q5MINP PRN SL 10/24/24 14:00 Morphine Sulfate 2 mg Q30M PRN IV 10/24/24 14:00 Ondansetron HCl 4 mg Q4HPRN PRN IV 10/24/24 14:00 Hydralazine HCl 10 mg Q6HP PRN IV 10/24/24 14:00 10/26/24 16:28 10 MG Carvedilol 6.25 mg Q12HR PO 10/24/24 22:00 10/27/24 09:07 6.25 MG Enoxaparin Sodium 30 mg DAILY SC 10/25/24 10:00 10/27/24 09:08 30 MG Morphine Sulfate 2 mg Q4HPRN PRN IV 10/24/24 14:15 Iron Sucrose 110 ml @ 110 mls/hr DAILY@1200 IV 10/24/24 16:45 10/28/24 12:59 10/27/24 12:16 110 MLS/HR Finasteride 5 mg DAILY PO 10/25/24 10:00 10/27/24 09:08 5 MG Insulin Glargine 15 units HS SC 10/24/24 22:00 10/26/24 21:18 15 UNITS Ipratropium [place] 0.5 mg Q6HWA PRN NEB 10/24/24 18:15 10/24/24 18:27 0.5 MG Levalbuterol HCl 0.625 mg Q6HR PRN NEB 10/24/24 18:15 10/24/24 18:27 0.625 MG Amlodipine Besylate 10 mg QPM@2000 PO 10/24/24 20:00 10/26/24 19:39 10 MG Diagnostic Test (Pha) 1 strip ACHS 10/25/24 07:00 10/27/24 11:56 1 STRIP Insulin Human Regular AC SC 10/25/24 07:00 10/27/24 11:57 8 UNITS Insulin Human Regular HS SC 10/25/24 22:00 10/26/24 21:19 3 UNITS Dextrose 50 ml UD PRN IV 10/25/24 02:30 Ergocalciferol 50,000 unit Q7D PO 10/25/24 11:30 10/25/24 11:45 50,000 UNIT Acetaminophen 650 mg Q6HP PRN PO 10/25/24 19:00 10/26/24 19:39 650 MG Famotidine 20 mg DAILY PO 10/27/24 10:00 10/27/24 09:08 20 MG Tamsulosin HCl 0.4 mg QPM PO 10/27/24 18:00 Examination: GENERAL:Normal, LUNGS:Abnormal, ABDOMEN:Abnormal laboratory and microbiology Laboratory Tests 10/27/24 05:39 10/27/24 05:34 Test 10/27/24 05:34 Range/Units Serum Glucose 120 H 74-106 mg/dL Microbiology Date/Time Source Procedure Growth Status 10/24/24 10:00 Blood Blood Culture - Preliminary NO GROWTH AFTER 72 HOURS OF INCUBATION. Resulted Problem List/Assessment/Plan Problem List/Assessment/Plan 63-year-old male past medical history of chronic kidney disease stage 4 hypertension diabetes and BPH presents to hospital with shortness of breath was diagnosed with pneumonia. Acute kidney injury hemodynamically mediated Chronic kidney disease stage 4 Sepsis secondary to pneumonia CHF NSTEMI Hypertension nephrotic proteinuria anemia with severe iron deficiency BPH vitamin D deficiency , hyperparathyroidism Agree with IV antibiotics broad-spectrum for pneumonia Lasix IV Currently on Coreg for hypertension, in the morning if continues to have high blood pressure then recommend starting calcium channel bridgett. Advised against JOSE MARIA inhibitor ARB use at this time Start IV iron loading dose for severe iron deficiency and Epogen sub Q yesterday Patient had ultrasound which showed a distended bladder but no hydronephrosis monitor I&O with accurate recordings daily. Ruiz was placed overnight due to urinary retention, per primary currently getting trial of void completed BPH meds resumed No emergent indication for dialysis at this time , we will need to resume outpatient renal follow-up with me for chronic kidney disease. patient will schedule for ckd clinic in 2 weeks Plan discussed with: Patient Total Time (mins): 33 MARTINA HARRIS MD Oct 27, 2024 12:54
--- NOTE | 2024-10-27 14:15 | DVHPN2 ---
Progress Note - Dictate Date Seen: Oct 27, 2024 Medical Necessity Reason Pt with a Central, PICC or Fol: No The following are medically ne: Ruiz Catheter vital signs Vital Sign Date Time Temp Pulse Resp B/P (MAP) Pulse Ox O2 Delivery O2 Flow Rate FiO2 10/27/24 09:07 70 120/63 10/27/24 08:10 19 94 Nasal Cannula* 2 28 10/27/24 05:00 97.5 97.5 Total Intake and Output 10/26/24 10/26/24 10/27/24 15:00 23:00 07:00 Intake Total 490 ml 1280 ml 200 ml Output Total 2100 ml 1250 ml Balance 490 ml -820 ml -1050 ml medications Current Medications Medications Dose Ordered Sig/Bossman Route Start Time Stop Time Status Last Admin Dose Admin Nitroglycerin 0.4 mg Q5MINP PRN SL 10/24/24 14:00 Morphine Sulfate 2 mg Q30M PRN IV 10/24/24 14:00 Ondansetron HCl 4 mg Q4HPRN PRN IV 10/24/24 14:00 Hydralazine HCl 10 mg Q6HP PRN IV 10/24/24 14:00 10/26/24 16:28 10 MG Carvedilol 6.25 mg Q12HR PO 10/24/24 22:00 10/27/24 09:07 6.25 MG Enoxaparin Sodium 30 mg DAILY SC 10/25/24 10:00 10/27/24 09:08 30 MG Morphine Sulfate 2 mg Q4HPRN PRN IV 10/24/24 14:15 Iron Sucrose 110 ml @ 110 mls/hr DAILY@1200 IV 10/24/24 16:45 10/28/24 12:59 10/27/24 12:16 110 MLS/HR Finasteride 5 mg DAILY PO 10/25/24 10:00 10/27/24 09:08 5 MG Ipratropium [place] 0.5 mg Q6HWA PRN NEB 10/24/24 18:15 10/24/24 18:27 0.5 MG Levalbuterol HCl 0.625 mg Q6HR PRN NEB 10/24/24 18:15 10/24/24 18:27 0.625 MG Amlodipine Besylate 10 mg QPM@2000 PO 10/24/24 20:00 10/26/24 19:39 10 MG Diagnostic Test (Pha) 1 strip ACHS 10/25/24 07:00 10/27/24 11:56 1 STRIP Insulin Human Regular AC SC 10/25/24 07:00 10/27/24 11:57 8 UNITS Insulin Human Regular HS SC 10/25/24 22:00 10/26/24 21:19 3 UNITS Dextrose 50 ml UD PRN IV 10/25/24 02:30 Ergocalciferol 50,000 unit Q7D PO 10/25/24 11:30 10/25/24 11:45 50,000 UNIT Acetaminophen 650 mg Q6HP PRN PO 10/25/24 19:00 10/26/24 19:39 650 MG Famotidine 20 mg DAILY PO 10/27/24 10:00 10/27/24 09:08 20 MG Tamsulosin HCl 0.4 mg QPM PO 10/27/24 18:00 laboratory and microbiology Laboratory Tests 10/27/24 05:39 10/27/24 05:34 Test 10/27/24 05:34 Range/Units Serum Glucose 120 H 74-106 mg/dL Assessment/Plan Impression Acute hypoxemic respiratory failure Community acquired pneumonia Morbid obesity Atelectasis TREY Patient seen and examined Events Low oxygen requirements On 2 liters nasal cannula No acute events Labs and imaging reviewed Management Supplemental oxygen Titrate to maintain sats 90% or above Incentive spirometry Continue antibiotics F/u cultures Bronchodilators Monitor renal function Monitor electrolytes Supplement as needed Patient may have TREY Would benefit from sleep study as outpatient Management per primary DVT prophylaxis Plan discussed with: Patient JENNIFER IVERSON MD Oct 27, 2024 14:15
[2024-10-27] MEDS: TAMSULOSIN HYDROCHLORIDE 0.4 MG CAP PO SCH (17:55)
[2024-10-27] MEDS: INSULIN LANTUS (GLARGINE) 1 /0.01ml (100units/ml) SC ONE (18:48)
== END 2024-10-27 19:40 | disposition home or self-care (01) | DRG 871 ==
LOC: ER 07:36 → OVERFLOW 14:00 → TELE-CENTR 15:45
PROVIDERS: ADMIT Hospitalist; ATTEND Hospitalist
DX: A41.9 Sepsis, unspecified organism (principal); I21.4 Non-ST elevation (NSTEMI) myocardial infarction; J96.01 Acute respiratory failure with hypoxia; J18.9 Pneumonia, unspecified organism; J44.1 Chronic obstructive pulmonary disease with (acute) exacerbation; N18.4 Chronic kidney disease, stage 4 (severe); N17.9 Acute kidney failure, unspecified; J44.0 Chronic obstructive pulmonary disease with (acute) lower respiratory infection; J98.11 Atelectasis; I13.0 Hypertensive heart and chronic kidney disease with heart failure and stage 1 through stage 4 chronic kidney disease, or unspecified chronic kidney disease; E87.20 Acidosis, unspecified; E66.2 Morbid (severe) obesity with alveolar hypoventilation; I50.22 Chronic systolic (congestive) heart failure; D63.1 Anemia in chronic kidney disease; D50.9 Iron deficiency anemia, unspecified; E11.65 Type 2 diabetes mellitus with hyperglycemia; E11.22 Type 2 diabetes mellitus with diabetic chronic kidney disease; Z68.36 Body mass index [BMI] 36.0-36.9, adult; Z20.822 Contact with and (suspected) exposure to COVID-19; J98.4 Other disorders of lung; R33.8 Other retention of urine; N40.1 Benign prostatic hyperplasia with lower urinary tract symptoms; E78.5 Hyperlipidemia, unspecified; E55.9 Vitamin D deficiency, unspecified; E21.3 Hyperparathyroidism, unspecified; Z87.440 Personal history of urinary (tract) infections; Z82.49 Family history of ischemic heart disease and other diseases of the circulatory system; Z79.899 Other long term (current) drug therapy; Z79.84 Long term (current) use of oral hypoglycemic drugs
CPT/HCPCS: 36415; 71045; 76775; 78582; 80048; 81001; 82270; 82306; 82570; 82728; 82962; 83540; 83550; 83605; 83880; 83970; 84100; 84156; 84484; 85007; 85025; 85027; 85379; 87040; 87426; 93005; 93306; 93970; 94640; 96365; 96375; 97110; 97163; 99291; 99292; G0378; J1756; J1815; J1956